=== PATIENT | female | born 1950 | race Caucasian/White ===

== ENCOUNTER 2018-07-27 17:54 | Emergency (ER) | payer MEDICARE, OTHER, SELFPAY ==
[2018-07-27 18:02] VITALS: BP 132/67; PULSE 74; RESP 20; TEMP 36.4; O2SAT 97
--- NOTE | 2018-07-27 18:09 | DI.CT.S_ITS ---
PROCEDURE: CT HEAD/BRAIN WO CON INDICATIONS: fall with head injury, hematoma, vision change TECHNIQUE: Noncontrast 4.5 mm thick angled axial sections acquired from the foramen magnum to the vertex, with coronal and sagittal reformats. For radiation dose reduction, the following was used: automated exposure control, adjustment of mA and/or kV according to patient size. COMPARISON: None. FINDINGS: Image quality: Excellent. CSF spaces: Basal cisterns are patent. No extra-axial fluid collections. Ventricles are normal in size and shape. Brain: No intracranial hemorrhage, mass, or mass effect. Foote-white matter interface is preserved. Skull and face: There is subcutaneous soft tissue swelling in the left supraorbital for a region. Calvarium and visualized facial bones appear intact. The visualized orbits demonstrate no fluid collections. The visualized globes appear intact. Sinuses: Visualized sinuses and mastoids are clear. IMPRESSION: 1. No acute intracranial abnormalities. 2. Left supraorbital forehead soft tissue swelling without evidence of associated fracture. Dictated by: hCarli Nails M.D. on 07/27/2018 at 19:01 Approved by: Charli Nails M.D. on 07/27/2018 at 19:04
--- NOTE | 2018-07-27 18:09 | ED.HEATRA ---
HPI - Head Injury General Chief complaint: Head Injury Stated complaint: FALL LEFT SIDE BUMP ON HEAD Time Seen by Provider: 07/27/18 18:00 Source: patient and family Mode of arrival: ambulatory Limitations: no limitations History of Present Illness HPI Narrative: 68-year-old female, nonsmoker presents with her and a chief complaint of a ground level fall resulting in head injury. She was walking in the dark bedroom and tripped on a carpet, falling forward striking the left part of her forehead. She denies loss of consciousness nor nausea or. She is acting baseline per her . She has had no nausea, vomiting denies any numbness, tingling or weakness. She denies any neck or back pain nor any other injury such as shoulder, hip or knee. She takes no blood thinners and denies use of alcohol or street drugs. MD Complaint: head injury Onset (ago): minute(s) Mechanism of Injury: fall Place: home Loss of Consciousness: no Location of injury: frontal Severity: mild Quality: aching Radiation: none Other Injuries: none Associated symptoms: denies other symptoms Related Data Home Medications Medication Instructions Recorded Confirmed estradiol 0.5 mg PO QDAY #0 08/22/17 06/30/18 calcium carbonate-vitamin D3 1 tab PO BID #180 09/16/17 06/30/18 [Oyster Shell Calcium-Vit D3] diphenhydramine HCl [Benadryl 25 mg PO PRN PRN #0 09/16/17 06/30/18 Allergy] levothyroxine [Synthroid] 100 mg PO QDAY #90 09/16/17 06/30/18 loratadine 10 mg PO QDAY #90 09/16/17 06/30/18 hydroxyzine HCl #0 12/22/17 06/30/18 felodipine ER 10 mg PO 90 Days #90 tab 02/03/18 06/30/18 tablet,extended release 24 hr metoprolol succinate ER 25 mg PO 90 Days #45 tab 02/03/18 06/30/18 tablet,extended release 24 hr montelukast 10 mg tablet 10 mg PO 90 Days tab 02/03/18 06/30/18 simvastatin 20 mg tablet 20 mg PO 90 Days tab 02/03/18 06/30/18 Previous Rx's Medication Instructions Recorded prednisone 20 mg PO QDAY #8 tab 12/22/17 triamcinolone acetonide 1 vincent TOPICAL BIDP PRN #15 gm 12/22/17 hydroxyzine HCl 10 mg PO TIDP PRN #90 tab 12/25/17 lithium carbonate 150 mg PO HS #180 cap 12/25/17 lurasidone 40 mg tablet 40 mg PO HS #90 tab 03/04/18 lamotrigine 100 mg tablet 100 mg PO QDAY #90 tab 06/30/18 Allergies Allergy/AdvReac Type Severity Reaction Status Date / Time hydromorphone [HYDROMORPHONE] Allergy Unknown Unverified 06/30/18 09:56 NSAIDS (Non-Steroidal Allergy Unknown Unverified 06/30/18 09:56 Anti-Inflamma [NSAIDS (NON-STEROIDAL ANTI-INFLAMMA] hydrocodone [HYDROCODONE] AdvReac Mild itching Unverified 06/30/18 09:56 oxycodone [OXYCODONE] AdvReac Mild itching Unverified 06/30/18 09:56 ANTHISTAMINE Allergy Intermediate HIVES,ITCHI Uncoded 06/30/18 09:56 NG Review of Systems Review of Systems All systems reviewed & are unremarkable except as noted in HPI and below Constitutional Denies chills, Denies fever(s), Denies lethargy and Denies weakness Eyes Denies change in vision, Denies eye discharge, Denies irritation and Denies loss of vision ENT Ears, Nose, Mouth, and Throat: Denies change in voice, Denies neck pain and Denies sore throat Cardiovascular Denies chest pain, Denies irregular heart rhythm, Denies lightheadedness, Denies palpitations, Denies dyspnea, Denies dyspnea on exertion and Denies orthopnea Respiratory Denies cough, Denies dyspnea, Denies dyspnea on exertion and Denies wheezing Gastrointestinal Gastrointestinal: Denies abdominal pain, Denies change in bowel habits, Denies diarrhea, Denies nausea and Denies vomiting Genitourinary Denies hematuria, Denies flank pain, Denies urinary incontinence and Denies urinary urgency Musculoskeletal Denies neck pain Integumentary/Breasts Denies pruritus, Denies erythema, Denies rash, Reports skin pain, Reports skin swelling and Denies wounds Neurologic Denies confusion, Denies loss of vision and Denies weakness Psychiatric Denies anxiety, Denies confusion, Denies depression, Denies homicidal ideation and Denies suicidal ideation Endocrine Denies palpitations Hematologic/Lymphatic Denies easy bruising Allergic/Immunologic Denies wheezing PFSH Medical History Obstructive sleep apnea of adult (Chronic) Primary insomnia (Chronic) Snoring (Chronic) Social History Smoking Status: Never smoker Exam Narrative Exam Narrative: GENERAL: 68-year-old female, mild distress, GCS 15 HEAD: hematoma to left forehead with superficial abrasion. no evidence of depressed skull fracture EYES: Pupils equal round and reactive. Extraocular motions intact. No scleral icterus. No injection or drainage. No hyphema ENT: Nose without bleeding, purulent drainage or septal hematoma. Throat without erythema, tonsillar hypertrophy or exudate. Uvula midline. Airway patent. NECK: Trachea midline. No JVD or lymphadenopathy. Supple, nontender, no meningeal signs. CARDIOVASCULAR: Regular rate and rhythm without murmurs, gallops, or rubs. RESPIRATORY: Clear to auscultation. Breath sounds equal bilaterally. No wheezes, rales, or rhonchi. GASTROINTESTINAL: Abdomen soft, non-tender, nondistended. No hepato-splenomegaly, or palpable masses. No guarding. EXTREMITIES: No clubbing, cyanosis, or edema. No joint tenderness, effusion, or edema noted. BACK: Nontender without deformity or crepitance. No flank tenderness. NEURO: AOx3. SKIN: No rash or erythema. Initial Vital Signs Initial Vital Signs: Vital Signs Temperature 97.6 F 07/27/18 18:02 Pulse Rate 74 07/27/18 18:02 Respiratory Rate 20 07/27/18 18:02 Blood Pressure 132/67 07/27/18 18:02 Pulse Oximetry 97 07/27/18 18:02 Course Orders Ordered: ED Orders 07/27/18 18:09 CT head/brain wo con Stat Vital Signs - 8 hr 07/27/18 18:02 07/27/18 19:02 Temperature 97.6 F Pulse Rate 74 73 Respiratory Rate 20 16 Blood Pressure 132/67 Blood Pressure [Left Arm] 103/62 Pulse Oximetry 97 98 Discharge Plan Departure Patient Disposition: Home Clinical Impression: Hematoma Discharge Date/Time: 07/27/18 19:39 Interventions: ED Discharge Assessment Last Done: 07/27/18 19:39 Instructions: DI for Hematoma (Bruise) Activity Restrictions/Additional Instructions: *You have been diagnosed with [ ground level fall with forehead contusion ] *What to do: * continued to take medications as directed *Follow up with your primary care provider in 2-3 days, call for an appointment. Let them know you were seen in the Emergency Department and that we ask that you be seen in follow up. follow up with your labor standards director as well given your relatively recent cataract surgery and occasional blurring of vision in the left *Return to ER if you should have any new, worsening or concerning symptoms, such as [ ] Prescriptions: No Action montelukast 10 mg tablet 10 mg PO 90 Days RF: 0 metoprolol succinate 25 mg tablet extended release 24 hr PO 90 Days Qty: 45 RF: 0 simvastatin 20 mg tablet 20 mg PO 90 Days RF: 0 felodipine 10 mg tablet extended release 24 hr PO 90 Days Qty: 90 RF: 0 lurasidone [Latuda] 40 mg tablet 40 mg PO HS Qty: 90 RF: 1 lamotrigine [Lamictal] 100 mg tablet 100 mg PO QDAY Qty: 90 RF: 1 estradiol 0.5 MG tablet 0.5 mg PO QDAY Qty: 0 RF: 0 calcium carbonate-vitamin D3 [Oyster Shell Calcium-Vit D3] 500 MG/200 IU tablet 1 tab PO BID Qty: 180 RF: 0 levothyroxine [Synthroid] 100 MCG tablet 100 mg PO QDAY Qty: 90 RF: 0 loratadine 10 MG tablet 10 mg PO QDAY Qty: 90 RF: 0 diphenhydramine HCl [Benadryl Allergy] 25 MG tablet 25 mg PO PRN PRNQty: 0 RF: 0 hydroxyzine HCl 25 MG tablet Qty: 0 RF: 0 prednisone 20 MG tablet 20 mg PO QDAY Qty: 8 RF: 0 triamcinolone acetonide 0.1 % cream 1 vincent Topical BIDP PRNQty: 15 RF: 0 lithium carbonate 150 MG capsule 150 mg PO HS Qty: 180 RF: 1 hydroxyzine HCl 10 MG tablet 10 mg PO TIDP PRNQty: 90 RF: 1
--- NOTE | 2018-07-27 18:25 | PC.NURSE ---
pt reports she briefly had blurry vision in her left eye only, this resolved prior to arrival in ED, pupils equal/round/reactive
[2018-07-27 19:02] VITALS: BP 103/62; PULSE 73; RESP 16; O2SAT 98
== END 2018-07-27 19:39 | disposition home or self-care (01) ==
PROVIDERS: Emergency Provider Emergency Medicine
DX: S00.83XA Contusion of other part of head, initial encounter (principal); W01.0XXA Fall on same level from slipping, tripping and stumbling without subsequent striking against object, initial encounter
CPT/HCPCS: 70450; 99283; 99284

== ENCOUNTER → 2020-01-25 10:08 | Outpatient (CLI) | payer MEDICARE, OTHER, SELFPAY ==
--- NOTE | 2020-01-25 | DI.MG.S_ITS ---
BILATERAL DIGITAL SCREENING MAMMOGRAM 3D/2D WITH CAD: 01/25/2020 CLINICAL: Routine screening. Comparison is made to exams dated: 09/16/2018 mammogram, 07/24/2017 mammogram, and 07/25/2016 mammogram - [facility]. There are scattered fibroglandular elements in both breasts. Current study was also evaluated with a Computer Aided Detection (CAD) system. There are benign vascular calcifications in the left breast. No significant masses, calcifications, or other findings are seen in either breast. There has been no significant interval change. IMPRESSION: There is no mammographic evidence of malignancy. A 1 year screening mammogram is recommended. This exam was interpreted at Station ID: [id number]. NOTE: For mammograms, a report in lay terms will be sent to the patient. Approximately 15% of breast malignancies will not be visualized mammographically. In the management of a palpable breast mass, a negative mammogram must not discourage biopsy of a clinically suspicious lesion. Electronically Signed By: Irvin finn/stephon:01/25/2020 10:38:51 letter sent: Normal Exam ACR BI-RADS Category 2: Benign Finding(s) [id number]
== END ==
PROVIDERS: Referring Provider Physician Assistant; Visit Provider Physician Assistant
DX: Z12.31 Encounter for screening mammogram for malignant neoplasm of breast (principal)
CPT/HCPCS: 77063; 77067

== ENCOUNTER → 2020-08-17 11:35 | Outpatient (CLI) | payer MEDICARE, OTHER, SELFPAY ==
--- NOTE | 2020-08-17 | DI.MRI.S_ITS ---
PROCEDURE: MR ANKLE RT WO CON INDICATIONS: Sprain of other ligament of right ankle, subsequent encounte TECHNIQUE: Noncontrast sagittal T1 spin echo and T2 fast spin echo with fat saturation, axial proton density fast spin echo and T2 fast spin echo with fat saturation, coronal T1 spin echo and T2 fast spin echo with fat saturation through the ankle/hindfoot. COMPARISON: None. FINDINGS: Image quality: Excellent. Bones and joints: No bone marrow contusions or fractures. No hindfoot coalitions. No osteochondral injuries of the talar dome. No pathologic joint effusions. There is extensive severe diffuse tarsometatarsal joint degeneration with subchondral edema and cystic changes. Medial structures: Posterior tibialis intact. Flexor digitorum longus intact. Flexor hallucis longus tendon intact. The posterior tibial neurovascular bundle appears normal within the tarsal tunnel, without extrinsic mass effect. Deltoid ligament complex appears intact. The spring ligament appears intact. Lateral structures: Anterior talofibular ligament is not well visualized, with possible T2 hyperintensity suggesting age-indeterminate sprain. Calcaneofibular ligament intact. Posterior talofibular ligament intact. Anterior and posterior tibiofibular ligaments appear intact, as is the intermalleolar ligament. Tibiofibular syndesmosis is normal in width at 2 mm or less. Peroneus longus and brevis tendons appear thickened with mild intrasubstance signal changes. There is diffuse peroneal tenosynovitis Bony peroneal tubercle and retrotrochlear prominence are normal in size. Sinus tarsi demonstrates normal fatty signal, without edema, fibrosis, or cyst formation. Anterior structures: Tibialis anterior intact. Extensor hallucis longus intact. Extensor digitorum longus tendon intact. Dorsal talonavicular ligament appears intact. Posterior and plantar structures: Distal Achilles tendinopathy, thickening and intrasubstance signal changes. Medial and lateral bands of the plantar fascia intact. No abductor digiti quinti muscle atrophy to suggest Last neuropathy. 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 on 08/17/2020 at 12:58 Approved by: Cosme Ponce M.D. on 08/17/2020 at 13:07
== END ==
PROVIDERS: Referring Provider Podiatrist; Visit Provider Podiatrist
DX: S93.491D Sprain of other ligament of right ankle, subsequent encounter (principal); M65.871 Other synovitis and tenosynovitis, right ankle and foot; M19.071 Primary osteoarthritis, right ankle and foot
CPT/HCPCS: 73721

== ENCOUNTER → 2020-12-27 07:57 | Outpatient (CLI) | payer MEDICARE, OTHER, SELFPAY ==
[2020-12-27 08:51] LABS: Add Manual Diff / Slide Review NO; Basophils Absolute Auto 0 /uL (0-100); Basophils Percent Auto 0.1 % (0-2); Eosinophils Absolute Auto 0 /uL (0-450); Eosinophils Percent Auto 0.1 % (2-4); Hematocrit 40.8 % (36-46); Lymphocytes Absolute Auto 1100 /uL (1100-4500); Lymphocytes Percent Auto 27.7 % (25-40); Mean Corpuscular HGB Conc 34.3 % (30-36); Mean Corpuscular Hemoglobin 31.9 PG (26-34); Monocytes Absolute Auto 400 /uL (0-900); Monocytes Percent Auto 10.8 % (3-14); Neutrophils Absolute Auto 2500 /uL (1500-7000); Neutrophils Percent Auto 61.3 % (50-75); Platelet Count 170 X10^3/uL (150-400); Red Blood Cell Count 4.38 X10^6/uL (4.0-5.2); White Blood Cell Count 4.1 X10^3/uL (4.5-11.0)
[2020-12-27 08:59] LABS: Hemoglobin A1C% w Est Avg Glu 4.7 % (4.0-6.0)
[2020-12-27 09:37] LABS: Lithium 0.3 mmol/L (0.6-1.2)
[2020-12-27 09:38] LABS: Alanine Aminotransferase 19 IU/L (<35); Albumin 4.7 g/dL (3.5-5.0); Alkaline Phosphatase 75 U/L (38-126); Aspartate Aminotransferase 31 IU/L (14-36); Bilirubin Total 0.5 mg/dL (0.2-1.3); Blood Urea Nitrogen 17 mg/dL (7-17); Calcium 10.1 mg/dL (8.4-10.2); Carbon Dioxide 26 mmol/L (22-32); Chloride 101 mmol/L (98-107); Cholesterol 204 mg/dL (140-199); Estimated Glomerular Filt Rate 55.1 mL/min (>60); Globulin 2.4 g/dL (1.7-4.1); Glucose 89 mg/dL (80-110); HDL Cholesterol 94 mg/dL (40-60); HEMOLYSIS < 15 (0-50); LDL Cholesterol Calculated 100 mg/dL (<100); Potassium 4.6 mmol/L (3.4-5.1); Sodium 134 mmol/L (137-145); Total Protein 7.1 g/dL (6.3-8.2); Triglycerides 51 mg/dL (35-150)
[2020-12-27 09:54] LABS: Free T4, Direct Thyroxine 1.44 ng/dL (0.78-2.19)
[2020-12-27 10:12] LABS: Thyroid Stimulating Hormone 0.158 uIU/mL (0.47-4.68)
== END ==
PROVIDERS: PCP Physician Assistant; Referring Provider Nurse Practitioner Psychiatric/Mental Health; Visit Provider Nurse Practitioner Psychiatric/Mental Health
DX: F31.9 Bipolar disorder, unspecified (principal); Z51.81 Encounter for therapeutic drug level monitoring; F43.10 Post-traumatic stress disorder, unspecified; F41.9 Anxiety disorder, unspecified; E03.9 Hypothyroidism, unspecified; E78.5 Hyperlipidemia, unspecified; E11.9 Type 2 diabetes mellitus without complications; N28.9 Disorder of kidney and ureter, unspecified
CPT/HCPCS: 36415; 80053; 80061; 80178; 83036; 84439; 84443; 85025

== ENCOUNTER → 2021-01-25 15:12 | Outpatient (CLI) | payer MEDICARE, OTHER, SELFPAY ==
--- NOTE | 2021-01-25 | DI.MG.S_ITS ---
BILATERAL DIGITAL SCREENING MAMMOGRAM 3D/2D WITH CAD: 01/25/2021 CLINICAL: Routine screening. Comparison is made to exams dated: 01/25/2020 mammogram - [facility], 09/16/2018 mammogram, and 07/24/2017 mammogram - [facility]. There are scattered fibroglandular elements in both breasts. Current study was also evaluated with a Computer Aided Detection (CAD) system. There are benign vascular calcifications in the left breast. No significant masses, calcifications, or other findings are seen in either breast. There has been no significant interval change. IMPRESSION: BENIGN There is no mammographic evidence of malignancy. A 1 year screening mammogram is recommended. This exam was interpreted at Station ID: [id number]. NOTE: For mammograms, a report in lay terms will be sent to the patient. Approximately 15% of breast malignancies will not be visualized mammographically. In the management of a palpable breast mass, a negative mammogram must not discourage biopsy of a clinically suspicious lesion. Electronically Signed By: Irvin finn/stephon:01/25/2021 17:57:02 letter sent: Normal Exam ACR BI-RADS Category 2: Benign Finding(s) [id number]
== END ==
PROVIDERS: PCP Physician Assistant; Referring Provider Physician Assistant; Visit Provider Physician Assistant
DX: Z12.31 Encounter for screening mammogram for malignant neoplasm of breast (principal)
CPT/HCPCS: 77063; 77067

== ENCOUNTER → 2021-01-29 13:19 | Outpatient (CLI) | payer MEDICARE, OTHER, SELFPAY | PROVIDERS: PCP Physician Assistant; Referring Provider Podiatrist; Visit Provider Podiatrist | DX: Z01.818 Encounter for other preprocedural examination (principal) | CPT/HCPCS: 93005 ==

== ENCOUNTER → 2022-02-06 09:34 | Outpatient (CLI) | payer MEDICARE, OTHER, SELFPAY ==
--- NOTE | 2022-02-06 | DI.MRI.S_ITS ---
PROCEDURE: MR KNEE RT WO CON INDICATIONS: BILATERAL KNEE PAIN TECHNIQUE: Noncontrast sagittal PD fast spin echo and T2 fast spin echo with fat saturation, sagittal 3-D FLASH with fat saturation; coronal T1 spin echo and PD fast spin echo with fat saturation, and axial PD fast spin echo with fat saturation through the knee. COMPARISON: [facility], MR, KNEE WITHOUT CONTRAST, 01/15/2013, 20:40. [facility], MR, MR KNEE LT WO CON, 02/06/2022, 9:57. FINDINGS: Image quality: Excellent. Menisci: There is linear horizontal high signal intensity traversing the inner, middle, and peripheral thirds of the medial meniscal body and posterior horn, demonstrating inferior articular surface extension, indicating horizontal tearing, as before. There is amorphous high signal intensity within the lateral meniscal body and posterior horn, demonstrating inferior articular surface extension, as before. Cruciate ligaments: The anterior and posterior cruciate ligaments appear intact. Medial structures: The medial collateral ligament appears intact. Visualized portions of the pes anserinus tendons appear normal. No abnormal bursal fluid. Lateral structures: The lateral collateral ligament, long and short heads of the biceps femoris tendon appear intact. The popliteus tendon appears normal. Iliotibial band appears normal. Anterior structures: The quadriceps and patellar tendons appear intact. Patellar alignment is normal. No femoral trochlear dysplasia or ventral trochlear prominence. No edema in the infrapatellar fat pad. Bones and cartilage: No bone marrow contusions or fractures. Mild tricompartmental periarticular osteophyte formation is present. Moderate articular cartilage loss diffusely overlies the weight-bearing aspects of the medial femoral condyle and medial tibial plateau. Mild articular cartilage loss diffusely overlies the weight-bearing aspects of the lateral femoral condyle and lateral tibial plateau. Severe articular cartilage loss overlies the patellar apex and medial patellar facet. Joint space: There is a small knee joint effusion. Increased intra-articular loose body within the posterior aspect of the medial compartment, currently measuring 12 mm. No Gillette's cyst. Normal appearing synovial plicae are incidentally noted. IMPRESSION: 1. Medial and lateral meniscal tearing. 2. Knee joint effusion. Intra-articular loose body. 3. Tricompartmental osteoarthritis with associated articular cartilage loss. Dictated by: Marino Turner M.D. on 02/06/2022 at 12:05 Approved by: Marino Turner M.D. on 02/06/2022 at 12:09
--- NOTE | 2022-02-06 | DI.MRI.S_ITS ---
PROCEDURE: MR KNEE LT WO CON INDICATIONS: BILATERAL KNEE PAIN TECHNIQUE: Noncontrast sagittal PD fast spin echo and T2 fast spin echo with fat saturation, sagittal 3-D FLASH with fat saturation; coronal T1 spin echo and PD fast spin echo with fat saturation, and axial PD fast spin echo with fat saturation through the knee. COMPARISON: [facility], MR, KNEE WITHOUT CONTRAST, 10/06/2014, 14:00. FINDINGS: Image quality: Excellent. Menisci: Horizontally oriented high T2 signal intensity traverses the inner, middle, and peripheral thirds of the posterior horn medial meniscus, demonstrating inferior articular surface extension, indicating horizontal tearing, as before. There is increased medial extrusion of the medial meniscus. New amorphous high signal intensity within the medial meniscal body is present demonstrating inferior articular surface extension, indicating complex tearing. Lateral meniscus is intact. Cruciate ligaments: The anterior and posterior cruciate ligaments appear intact. Medial structures: The medial collateral ligament appears intact. Visualized portions of the pes anserinus tendons appear normal. No abnormal bursal fluid. Lateral structures: The lateral collateral ligament, long and short heads of the biceps femoris tendon appear intact. The popliteus tendon appears normal. Iliotibial band appears normal. Anterior structures: The quadriceps and patellar tendons appear intact. Patellar alignment is normal. No femoral trochlear dysplasia or ventral trochlear prominence. No edema in the infrapatellar fat pad. Bones and cartilage: No bone marrow contusions or fractures. There is increased, moderate ill-defined T2 signal elevation within the weight-bearing aspects of the medial tibial plateau. New subchondral cyst formation within the medial tibial plateau posteriorly. Degenerative marrow edema within the patellar apex and medial patellar facet is present, as before. Mild tricompartmental periarticular osteophyte formation. Moderate articular cartilage loss diffusely overlies the weight-bearing aspects of the medial femoral condyle and medial tibial plateau. Severe articular cartilage loss overlies the patellar apex and medial patellar facet, as before. Joint space: There is physiologic knee joint fluid. No Gillette's cyst. Normal appearing synovial plicae are incidentally noted. IMPRESSION: 1. Progressive tearing of the medial meniscus which now demonstrates complex tearing. 2. Progressive medial compartment osteoarthritis with associated marrow edema in the medial tibial plateau and increased articular cartilage loss. 3. Patellofemoral compartment articular cartilage loss. Dictated by: Marino Turner M.D. on 02/06/2022 at 11:45 Approved by: Marino Turner M.D. on 02/06/2022 at 11:47
== END ==
PROVIDERS: PCP Student in an Organized Health Care Education/Training Program; Referring Provider Student in an Organized Health Care Education/Training Program; Visit Provider Student in an Organized Health Care Education/Training Program
DX: S83.232A Complex tear of medial meniscus, current injury, left knee, initial encounter (principal); S83.241A Other tear of medial meniscus, current injury, right knee, initial encounter; S83.281A Other tear of lateral meniscus, current injury, right knee, initial encounter; M17.0 Bilateral primary osteoarthritis of knee; M25.461 Effusion, right knee; M25.561 Pain in right knee; M25.562 Pain in left knee
CPT/HCPCS: 73721

== ENCOUNTER → 2022-03-12 10:38 | Outpatient (CLI) | payer MEDICARE, OTHER, SELFPAY ==
--- NOTE | 2022-03-12 | DI.MG.S_ITS ---
BILATERAL DIGITAL SCREENING MAMMOGRAM 3D/2D WITH CAD: 03/12/2022 CLINICAL: Routine screening. Comparison is made to exams dated: 01/25/2021 mammogram, 01/25/2020 mammogram - [facility], and 09/16/2018 mammogram - [facility]. There are scattered fibroglandular elements in both breasts. Current study was also evaluated with a Computer Aided Detection (CAD) system. There are benign vascular calcifications in the left breast. No significant masses, calcifications, or other findings are seen in either breast. There has been no significant interval change. IMPRESSION: BENIGN There is no mammographic evidence of malignancy. A 1 year screening mammogram is recommended. Based on the Tyrer Cuzick model (a risk assessment model) the patient's lifetime risk is 4.0% and her 10 year risk is 2.5%. According to the ACR, ACS, and NCCN guidelines, an annual breast MRI exam along with mammogram is recommended if the patient's lifetime risk is 20% or greater. This exam was interpreted at Station ID: [id number]. NOTE: For mammograms, a report in lay terms will be sent to the patient. Approximately 15% of breast malignancies will not be visualized mammographically. In the management of a palpable breast mass, a negative mammogram must not discourage biopsy of a clinically suspicious lesion. Electronically Signed By: Travis davies/stephon:03/12/2022 11:31:18 letter sent: Normal Exam ACR BI-RADS Category 2: Benign Finding(s) [id number]
== END ==
PROVIDERS: PCP Student in an Organized Health Care Education/Training Program; Referring Provider Student in an Organized Health Care Education/Training Program; Visit Provider Student in an Organized Health Care Education/Training Program
DX: Z12.31 Encounter for screening mammogram for malignant neoplasm of breast (principal)
CPT/HCPCS: 77063; 77067

== ENCOUNTER → 2022-06-06 09:06 | Outpatient (CLI) | payer MEDICARE, OTHER, SELFPAY ==
[2022-06-06 11:04] LABS: Alanine Aminotransferase 29 IU/L (<35); Albumin 4.5 g/dL (3.5-5.0); Albumin Globulin Ratio 1.7 (1.0-2.8); Alkaline Phosphatase 48 U/L (38-126); Aspartate Aminotransferase 37 IU/L (14-36); BUN Creatinine Ratio 14.2 (6-22); Bilirubin Total 0.5 mg/dL (0.2-1.3); Blood Urea Nitrogen 16 mg/dL (7-17); Calcium 10.2 mg/dL (8.4-10.2); Carbon Dioxide 28 mmol/L (22-32); Chloride 101 mmol/L (98-107); Estimated Glomerular Filt Rate 52 mL/min (>60); Globulin 2.6 g/dL (1.7-4.1); Glucose 83 mg/dL (80-110); HEMOLYSIS < 15 (0-50); Sodium 138 mmol/L (137-145); Total Protein 7.1 g/dL (6.3-8.2)
[2022-06-06 11:21] LABS: Free T4, Direct Thyroxine 1.11 ng/dL (0.78-2.19)
[2022-06-10 10:47] LABS: Lamotrigine Lamictal 3.4 ug/mL (2.0-20.0)
== END ==
PROVIDERS: PCP Student in an Organized Health Care Education/Training Program; Referring Provider Psychiatry & Neurology Psychiatry; Visit Provider Psychiatry & Neurology Psychiatry
DX: F31.31 Bipolar disorder, current episode depressed, mild (principal)
CPT/HCPCS: 36415; 80053; 80175; 84439; 84443

== ENCOUNTER → 2022-10-07 08:27 | Outpatient (CLI) | payer MEDICARE, OTHER, SELFPAY ==
[2022-10-07 09:05] LABS: Lithium 0.2 mmol/L (0.6-1.2)
[2022-10-07 09:09] LABS: Alanine Aminotransferase 41 IU/L (<35); Albumin 4.7 g/dL (3.5-5.0); Albumin Globulin Ratio 1.7 (1.0-2.8); Alkaline Phosphatase 46 U/L (38-126); Aspartate Aminotransferase 43 IU/L (14-36); BUN Creatinine Ratio 11.1 (6-22); Bilirubin Total 0.6 mg/dL (0.2-1.3); Blood Urea Nitrogen 14 mg/dL (7-17); Calcium 10.4 mg/dL (8.4-10.2); Carbon Dioxide 28 mmol/L (22-32); Chloride 96 mmol/L (98-107); Estimated Glomerular Filt Rate 46 mL/min (>60); Globulin 2.8 g/dL (1.7-4.1); Glucose 91 mg/dL (80-110); HEMOLYSIS < 15 (0-50); Potassium 4.4 mmol/L (3.4-5.1); Sodium 133 mmol/L (137-145); Total Protein 7.5 g/dL (6.3-8.2)
== END ==
PROVIDERS: PCP Student in an Organized Health Care Education/Training Program; Referring Provider Psychiatry & Neurology Psychiatry; Visit Provider Psychiatry & Neurology Psychiatry
DX: F31.31 Bipolar disorder, current episode depressed, mild (principal); Z51.81 Encounter for therapeutic drug level monitoring
CPT/HCPCS: 36415; 80053; 80175; 80178

== ENCOUNTER → 2022-12-13 09:18 | Outpatient (CLI) | payer MEDICARE, OTHER, SELFPAY ==
[2022-12-13 10:26] LABS: Alanine Aminotransferase 37 IU/L (<35); Albumin 4.3 g/dL (3.5-5.0); Albumin Globulin Ratio 1.5 (1.0-2.8); Alkaline Phosphatase 49 U/L (38-126); Aspartate Aminotransferase 41 IU/L (14-36); BUN Creatinine Ratio 16.5 (6-22); Bilirubin Total 0.4 mg/dL (0.2-1.3); Blood Urea Nitrogen 19 mg/dL (7-17); Calcium 9.8 mg/dL (8.4-10.2); Carbon Dioxide 28 mmol/L (22-32); Chloride 100 mmol/L (98-107); Estimated Glomerular Filt Rate 51 mL/min (>60); Globulin 2.9 g/dL (1.7-4.1); Glucose 87 mg/dL (80-110); HEMOLYSIS < 15 (0-50); Potassium 4.6 mmol/L (3.4-5.1); Sodium 135 mmol/L (137-145); Total Protein 7.2 g/dL (6.3-8.2)
[2022-12-13 10:29] LABS: Lithium < 0.2 mmol/L (0.6-1.2)
[2022-12-16 16:41] LABS: Lamotrigine Lamictal 3.3 ug/mL (2.0-20.0)
== END ==
PROVIDERS: PCP Student in an Organized Health Care Education/Training Program; Referring Provider Psychiatry & Neurology Psychiatry; Visit Provider Psychiatry & Neurology Psychiatry
DX: F31.31 Bipolar disorder, current episode depressed, mild (principal); Z79.899 Other long term (current) drug therapy
CPT/HCPCS: 36415; 80053; 80175; 80178

== ENCOUNTER 2023-03-12 09:40 | Emergency (ER) | payer MEDICARE, OTHER, SELFPAY ==
[2023-03-12 10:00] VITALS: BP 138/63; PULSE 60; RESP 14; TEMP 36.7; O2SAT 95; BMI 32.3
[2023-03-12 10:13] VITALS: PULSE 60; O2SAT 97
[2023-03-12 10:19] VITALS: BP 136/62; PULSE 59; RESP 19; O2SAT 95
--- NOTE | 2023-03-12 10:27 | ED.ABDPAIN ---
HPI - Abdominal Pain General Chief Complaint: Abdominal Pain Stated Complaint: pain RT side below belly button Time Seen by Provider: 03/12/23 09:47 Source: patient Mode of arrival: Ambulatory History of Present Illness HPI narrative: 73-year-old female nonsmoker with history of prior abdominal surgeries presents with a chief complaint of pain in her right lower quadrant gradually worsening over the course of the day. She states the pain seems to be worse by certain motions and by bending over it improves when lying flat and resting. She denies any radiation of the pain. She denies nausea, vomiting or diarrhea. She has had no fever or chills. She had a bowel movement this morning that was normal. She is passing gas without difficulty. She denies dysuria, frequency or urgency. Related Data Home Medications Medication Instructions Recorded Confirmed diphenhydramine HCl 25 mg tablet 25 mg PO PRN PRN ##0 09/16/17 08/15/22 (Benadryl Allergy) BIPAP inhalation 12/20/20 08/15/22 cholecalciferol (vitamin D3) 50 1,000 mcg PO DAILY 01/31/21 08/15/22 mcg (2,000 unit) capsule docusate sodium 100 mg capsule 200 mg PO DAILY 03/01/21 08/15/22 (Colace) psyllium husk 0.52 gram capsule 0.52 g PO DAILY 03/01/21 08/15/22 (Metamucil) ascorbic acid (vitamin C) 500 mg 500 mg PO DAILY 02/28/22 08/15/22 tablet conjugated estrogens 0.3 mg tablet 0.3 mg PO DAILY 02/28/22 08/15/22 (Premarin) felodipine 10 mg tablet,extended 10 mg PO DAILY 90 days 02/28/22 08/15/22 release 24 hr levothyroxine 88 mcg tablet 88 mcg PO DAILY 02/28/22 08/15/22 (Synthroid) metoprolol succinate 25 mg 25 mg PO DAILY 90 days 02/28/22 08/15/22 tablet,extended release 24 hr montelukast 10 mg tablet 10 mg PO DAILY 90 days 02/28/22 08/15/22 simvastatin 20 mg tablet 20 mg PO DAILY 90 days 02/28/22 08/15/22 turmeric 1 cap PO DAILY 02/28/22 08/15/22 Previous Rx's Medication Instructions Recorded lurasidone 40 mg tablet (Latuda) 40 mg PO HS #90 tabs 02/28/22 hydroxyzine HCl 10 mg tablet 10 mg PO QID PRN anxiety #90 tabs 11/05/22 lamotrigine 100 mg tablet 200 mg PO QDAY #180 tabs 11/05/22 (Lamictal) Allergies Allergy/AdvReac Type Severity Reaction Status Date / Time Opioids - Morphine Analogues Allergy Severe long Verified 03/12/23 10:04 lasting intense rashes hydromorphone [HYDROMORPHONE] Allergy Unknown Verified 03/12/23 10:04 hydrocodone [HYDROCODONE] AdvReac Mild itching Verified 03/12/23 10:04 oxycodone [OXYCODONE] AdvReac Mild itching Verified 03/12/23 10:04 NSAIDS (Non-Steroidal AdvReac Unknown Verified 03/12/23 10:04 Anti-Inflamma [NSAIDS (NON-STEROIDAL ANTI-INFLAMMA] ANTHISTAMINE Allergy Intermediate HIVES,ITCHI Uncoded 08/15/22 09:16 NG Review of Systems Review of Systems Narrative: GENERAL: Denies chills, fatigue, malaise, fever, sweats. HEENT: Denies sinus pain, ear pain, sore throat, difficulty swallowing, dizziness. RESPIRATORY: Denies dyspnea, cough, wheezing, hemoptysis, sputum. CARDIOVASCULAR: Denies chest pain, palpitations, orthopnea, edema, GASTROINTESTINAL: See HPI : Denies dysuria, frequency, incontinence, hematuria, urinary retention. MUSCULOSKELETAL: denies weakness, joint pain, or bony pain SKIN: Denies rash, skin lesions, or other NEUROLOGIC: Denies weakness, headache, numbness, change in speech, confusion, seizures, incoordination. PSYCHIATRIC: No concerning psychosocial issues. 12 point review of systems is negative except for those stated above Patient History Medical History Alcohol use disorder, moderate, in sustained remission Anxiety disorder Bipolar 1 disorder with moderate divya Bipolar disorder, unspecified History of IBS Nocturnal hypoxemia Obstructive sleep apnea of adult Snoring Stress at home Surgical History History of bilateral knee arthroplasty History of cholecystectomy History of lumbar laminectomy History of rotator cuff surgery History of vein stripping Social History seatbelt use: always do you feel safe at home: Yes Smoking Status: Never smoker second hand exposure: Yes (asthma) alcohol intake: former substance use type: hallucinogens during the past year weight has: remained stable Type(s) of exercise: walking Smoking Status: Never smoker alcohol intake frequency: 0-2 drinks per day Substance Use Type: does not use Exam Narrative Exam Narrative: GENERAL: [73] year old patient appears stated age. Well-developed patient, in mild distress. HEAD: Atraumatic. Normocephalic. EYES: Pupils equal round and reactive. Extraocular motions intact. No scleral icterus. No injection or drainage. ENT: Nose without bleeding, purulent drainage. Throat without erythema, tonsillar hypertrophy or exudate. Airway patent. NECK: Trachea midline. Non tender CARDIOVASCULAR: Regular rate and rhythm without murmurs, gallops, or rubs. RESPIRATORY: Clear to auscultation. Breath sounds equal bilaterally. No wheezes, rales, or rhonchi. GASTROINTESTINAL: Abdomen soft, minimal right lower quadrant pain on palpation, no rebound, nondistended. Negative Rovsing's, obturator, heel tap. Bowel sounds present EXTREMITIES: No edema or joint tenderness. BACK: Nontender without deformity or crepitance. No flank tenderness. NEURO: AOx3. SKIN: No rash or erythema of visible areas Initial Vital Signs Initial Vital Signs: Vital Signs Temperature 98.0 F 03/12/23 10:00 Pulse Rate 60 03/12/23 10:00 Respiratory Rate 14 03/12/23 10:00 Blood Pressure 138/63 03/12/23 10:00 Pulse Oximetry 95 03/12/23 10:00 Oxygen Delivery Method Room Air 03/12/23 10:00 Course Orders Ordered: Discontinued Medications Sodium Chloride (Normal Saline 0.9%) 1,000 mls @ 1,000 mls/hr IV BOLUS ONE Stop: 03/12/23 11:26 Last Infusion: 03/12/23 12:41 Dose: 0 mls/hr Documented By: Admin: 03/12/23 10:55 Dose: 1,000 mls/hr Documented By: SUSANNA Ondansetron HCl (Ondansetron 4 Mg Odt) 4 mg PO NOW PRN PRN Reason: Nausea And Vomiting Ondansetron HCl (Ondansetron 4 Mg/2 Ml Inj) 4 mg IV NOW PRN PRN Reason: Nausea And Vomiting Vital Signs Vital signs: Vital Signs - 8 hr 03/12/23 10:00 Temperature 98.0 F Pulse Rate 60 Respiratory Rate 14 Blood Pressure 138/63 Pulse Oximetry 95 Oxygen Delivery Method Room Air MDM - Abdominal Pain Lab Data 03/12/23 10:42 03/12/23 10:42 Labs: Lab Results 03/12/23 03/12/23 03/12/23 Range/Units 10:42 10:42 10:42 WBC 4.7 (4.5-11.0) X10^3/uL RBC 3.91 L (4.0-5.2) X10^6/uL Hgb 12.4 (12.0-16.0) g/dL Hct 35.8 L (36-46) % MCV 91.6 (80-100) fL MCH 31.8 (26-34) PG MCHC 34.7 (30-36) % RDW 14.1 (11.6-14.8) % Plt Count 172 (150-400) X10^3/uL Neut % (Auto) 61.0 (50-75) % Lymph % (Auto) 27.0 (25-40) % Wise % (Auto) 11.8 (3-14) % Eos % (Auto) 0.1 L (2-4) % Baso % (Auto) 0.1 (0-2) % Neut # (Auto) 2900 (2170-7327) /uL Lymph # (Auto) 1300 (0136-6999) /uL Wise # (Auto) 600 (0-900) /uL Eos # (Auto) 0 (0-450) /uL Baso # (Auto) 0 (0-100) /uL Sodium 133 L (137-145) mmol/L Potassium 4.5 (3.4-5.1) mmol/L Chloride 101 (98-107) mmol/L Carbon Dioxide 28 (22-32) mmol/L BUN 16 (7-17) mg/dL Creatinine 1.19 H (0.52-1.04) mg/dL Estimated GFR 49 L (>60) mL/min BUN/Creatinine Ratio 13.4 (6-22) Glucose 94 (80-110) mg/dL Lactate 0.6 L (0.7-2.1) mmol/L Calcium 9.8 (8.4-10.2) mg/dL Total Bilirubin 0.4 (0.2-1.3) mg/dL AST 38 H (14-36) IU/L ALT 30 (<35) IU/L Alkaline Phosphatase 73 (38-126) U/L Total Protein 7.1 (6.3-8.2) g/dL Albumin 4.3 (3.5-5.0) g/dL Globulin 2.8 (1.7-4.1) g/dL Albumin/Globulin Ratio 1.5 (1.0-2.8) Lipase 104 (23-300) U/L Point of care testing: Urine Dip Bedside Urine Glucose Negative Bedside Urine Bilirubin - Negative Bedside Urine Ketone - Negative Urine Specific Cocoa 1.010 Bedside Urine Occult Blood - Negative Bedside Urine pH 6.0 Bedside Urine Protein - Negative Bedside Urine Urobilinogen - Negative Bedside Urine Nitrite - Negative Bedside Urine Leukocytes - Negative Esterase MDM Narrative Medical decision making narrative: [73] year old patient presents with right lower quadrant pain Multiple etiologies for patient's symptoms considered including, but not limited to: [Appendicitis versus kidney stone versus bowel obstruction versus other] Prior Charts reviewed in our EMR Primary Historian: patient Labs reviewed and interpreted by myself: No leukocytosis or left shift, electrolytes and renal function within normal Imaging reviewed: No evidence of appendicitis or bowel obstruction Patient's history and physical exam are reassuring. Labs showed no sign of infection or other significant abnormality. Urine without evidence of infection. Patient's pain is well controlled, she is tolerating orals. CT shows no significant abnormality. We talked about no significant findings, certainly nothing surgical or requiring hospitalization. Discussed symptomatic treatment, use of clear liquid diet for a day or 2 and return precautions including worsening pain, fever, persistent vomiting or other bothersome symptoms. Patient is appropriate for discharge. She agrees with and understands the diagnosis and plan Patient's symptoms improved over duration of stay with above-stated therapies. Findings and discharge diagnosis discussed with patient/family followed by verbalization of understanding Return precautions discussed with patient/family whom verbalize understanding of diagnosis and plan Discharge Plan Departure Patient Disposition: Home Clinical Impression: Abdominal pain Instructions: DI for Abdominal Pain-Adult Activity Restrictions/Additional Instructions: *You have been diagnosed with [abdominal pain] * As we discussed your history and physical exam as well as labs and imaging are very reassuring. There is no evidence of any severe diagnoses that would require a specific or immediate intervention. *What to do: *Please continue to take your regular medications as directed. *Please follow up with your primary care provider in 2-3 days, call for an appointment. Let them know you were seen in the Emergency Department and that we ask that you be seen in follow up. We will electronically transmit a record of today's note if your PCP is in our system *Please consider a clear liquid diet for the next 24-48 hours and then slowly advance to regular as tolerated. Also, try to avoid alcohol, nicotine, caffeine, spicy, acidic or fatty foods as this may worsen your symptoms *If you do not have a primary care provider please contact the [facility] Resource line at [phone]. They will ask some questions about your medical history and help get you set up with a doctor in the community. *Return to Emergency Department if you should have any new, worsening or concerning symptoms, such as [fever greater than 101 F, shaking chills, worsening pain, persistent vomiting or other bothersome symptoms] Prescriptions: No Action felodipine 10 mg tablet extended release 24 hr 10 mg PO DAILY 90 Days metoprolol succinate 25 mg tablet extended release 24 hr 25 mg PO DAILY 90 Days simvastatin 20 mg tablet 20 mg PO DAILY 90 Days montelukast 10 mg tablet 10 mg PO DAILY 90 Days BIPAP inhalation docusate sodium [Colace] 100 mg capsule 200 mg PO DAILY psyllium husk [Metamucil] 0.52 gram capsule 0.52 g PO DAILY ascorbic acid (vitamin C) 500 mg tablet 500 mg PO DAILY Premarin 0.3 mg tablet 0.3 mg PO DAILY levothyroxine [Synthroid] 88 mcg tablet 88 mcg PO DAILY turmeric 1 cap PO DAILY Latuda 40 mg tablet 40 mg PO HS Qty: 90 3RF lamotrigine [Lamictal] 100 mg tablet 200 mg PO QDAY Qty: 180 3RF hydroxyzine HCl 10 mg tablet 10 mg PO QID PRN (Reason: anxiety) Qty: 90 3RF diphenhydramine HCl [Benadryl Allergy] 25 MG tablet 25 mg PO PRN PRNQty: 0 cholecalciferol (vitamin D3) 50 mcg (2,000 unit) capsule 1,000 mcg PO DAILY Referrals: Radha Bolivar MD [Primary Care Provider] - Stand Alone Forms: Patient Portal/API
[2023-03-12 10:30] VITALS: BP 149/70; PULSE 61; RESP 20; O2SAT 97
--- NOTE | 2023-03-12 10:33 | DI.CT.S_ITS ---
PROCEDURE: CT ABDOMEN PELVIS W CON INDICATIONS: severe RLQ pain, nausea TECHNIQUE: After the administration of intravenous contrast, axial sections acquired from the lung bases to the pubic symphysis. Coronal and sagittal reformats were performed. For radiation dose reduction, the following was used: automated exposure control, adjustment of mA and/or kV according to patient size. COMPARISON: None. FINDINGS: Image quality: Excellent. Lung bases: Unremarkable. Heart: No significant findings. ABDOMEN: Liver: Unremarkable. Gallbladder: Surgically absent Biliary ducts: Unremarkable. Pancreas: Unremarkable. Spleen: Unremarkable. Adrenal Glands: Unremarkable. Kidneys and Ureters: Unremarkable. Stomach and Bowel: A probable normal appendix is identified. There is moderately large right colonic and transverse colonic fecal debris. There are mildly prominent fluid-filled small bowel loops present in the right lower quadrant, none of which are abnormally dilated, measuring only as much as 2.1 cm. Peritoneum: No abnormal intraperitoneal fluid. No free air. Ventral Wall: No hernias. Abdominal Nodes: No retroperitoneal or mesenteric adenopathy by size criteria. Vessels: Aorta and inferior vena cava are normal in size. PELVIS: Pelvic Organs: Surgically absent. Bladder: Unremarkable. Pelvic Nodes: No enlarged lymph nodes. Miscellaneous: Small fat containing left inguinal hernia. Bones: Remote posterior lateral unipedicular fusion at L4-L5 with interbody spacer placement. Lumbar degenerative change. Scoliotic curvature. IMPRESSION: 1. A probable normal appendix is identified. No secondary signs of acute appendicitis. 2. No acute intra-abdominal process noted. 3. Moderately large fecal load. 4. Remote cholecystectomy and hysterectomy. Dictated by: Sharath Flores M.D. on 03/12/2023 at 11:44 Approved by: Sharath Flores M.D. on 03/12/2023 at 11:53
[2023-03-12] MEDS: SODIUM CHLORIDE 0.9% 1,000 ML 1000 ML IV (10:55)
[2023-03-12 11:01] VITALS: PULSE 60
[2023-03-12 11:03] LABS: Add Manual Diff / Slide Review NO; Basophils Absolute Auto 0 /uL (0-100); Basophils Percent Auto 0.1 % (0-2); Eosinophils Absolute Auto 0 /uL (0-450); Eosinophils Percent Auto 0.1 % (2-4); Hematocrit 35.8 % (36-46); Hemoglobin 12.4 g/dL (12.0-16.0); Lymphocytes Absolute Auto 1300 /uL (1100-4500); Mean Corpuscular HGB Conc 34.7 % (30-36); Mean Corpuscular Hemoglobin 31.8 PG (26-34); Mean Corpuscular Volume 91.6 fL (80-100); Monocytes Absolute Auto 600 /uL (0-900); Monocytes Percent Auto 11.8 % (3-14); Neutrophils Absolute Auto 2900 /uL (1500-7000); Platelet Count 172 X10^3/uL (150-400); Red Blood Cell Count 3.91 X10^6/uL (4.0-5.2); Red Cell Distribution Width 14.1 % (11.6-14.8); White Blood Cell Count 4.7 X10^3/uL (4.5-11.0)
[2023-03-12 11:04] VITALS: BP 134/64; PULSE 56; RESP 17; O2SAT 95
[2023-03-12 11:05] LABS: Lactate (Lactic Acid) 0.6 mmol/L (0.7-2.1)
[2023-03-12 11:07] LABS: Alanine Aminotransferase 30 IU/L (<35); Albumin 4.3 g/dL (3.5-5.0); Albumin Globulin Ratio 1.5 (1.0-2.8); Alkaline Phosphatase 73 U/L (38-126); Aspartate Aminotransferase 38 IU/L (14-36); BUN Creatinine Ratio 13.4 (6-22); Bilirubin Total 0.4 mg/dL (0.2-1.3); Blood Urea Nitrogen 16 mg/dL (7-17); Calcium 9.8 mg/dL (8.4-10.2); Carbon Dioxide 28 mmol/L (22-32); Chloride 101 mmol/L (98-107); Estimated Glomerular Filt Rate 49 mL/min (>60); Globulin 2.8 g/dL (1.7-4.1); Glucose 94 mg/dL (80-110); HEMOLYSIS < 15 (0-50); Lipase 104 U/L (23-300); Potassium 4.5 mmol/L (3.4-5.1); Sodium 133 mmol/L (137-145); Total Protein 7.1 g/dL (6.3-8.2)
== END 2023-03-12 12:44 | disposition home or self-care (01) ==
PROVIDERS: Emergency Provider Emergency Medicine; PCP Student in an Organized Health Care Education/Training Program
DX: R10.31 Right lower quadrant pain (principal)
CPT/HCPCS: 36415; 74177; 80053; 81003; 83605; 83690; 85025; 93005; 93010; 99284; Q9967

== ENCOUNTER → 2023-03-13 12:21 | Outpatient (CLI) | payer MEDICARE, OTHER, SELFPAY ==
--- NOTE | 2023-03-13 | DI.MG.S_ITS ---
BILATERAL DIGITAL SCREENING MAMMOGRAM 3D/2D WITH CAD: 03/13/2023 CLINICAL: Routine screening. Comparison is made to exams dated: 03/12/2022 mammogram, 01/25/2021 mammogram, and 01/25/2020 mammogram - [facility]. There are scattered areas of fibroglandular density in both breasts (category b / 25%-50% glandular tissue). Current study was also evaluated with a Computer Aided Detection (CAD) system. There are benign vascular calcifications in the left breast. No significant masses, calcifications, or other findings are seen in either breast. There has been no significant interval change. IMPRESSION: BENIGN There is no mammographic evidence of malignancy. A 1 year screening mammogram is recommended. Based on the Tyrer Cuzick model (a risk assessment model) the patient's lifetime risk is 5.7% and her 10 year risk is 3.9%. According to the ACR, ACS, and NCCN guidelines, an annual breast MRI exam along with mammogram is recommended if the patient's lifetime risk is 20% or greater. This exam was interpreted at Station ID: [id number]. NOTE: For mammograms, a report in lay terms will be sent to the patient. Approximately 15% of breast malignancies will not be visualized mammographically. In the management of a palpable breast mass, a negative mammogram must not discourage biopsy of a clinically suspicious lesion. Electronically Signed By: Jaquan berg/stephon:03/13/2023 12:48:47 letter sent: Normal Exam ACR BI-RADS Category 2: Benign Finding(s) [id number]
== END ==
PROVIDERS: PCP Student in an Organized Health Care Education/Training Program; Referring Provider Student in an Organized Health Care Education/Training Program; Visit Provider Student in an Organized Health Care Education/Training Program
DX: Z12.31 Encounter for screening mammogram for malignant neoplasm of breast (principal)
CPT/HCPCS: 77063; 77067

== ENCOUNTER → 2023-06-16 10:02 | Outpatient (CLI) | payer MEDICARE, OTHER, SELFPAY | PROVIDERS: PCP Student in an Organized Health Care Education/Training Program; Visit Provider Physician Assistant | DX: N89.8 Other specified noninflammatory disorders of vagina (principal); R30.0 Dysuria | CPT/HCPCS: 87086; 87210 ==

== ENCOUNTER → 2023-06-20 07:59 | Outpatient (CLI) | payer MEDICARE, OTHER, SELFPAY ==
[2023-06-24 12:58] LABS: Lamotrigine Lamictal 4.9 ug/mL (2.0-20.0)
== END ==
PROVIDERS: PCP Student in an Organized Health Care Education/Training Program; Referring Provider Psychiatry & Neurology Psychiatry; Visit Provider Psychiatry & Neurology Psychiatry
DX: F31.12 Bipolar disorder, current episode manic without psychotic features, moderate (principal); Z51.81 Encounter for therapeutic drug level monitoring
CPT/HCPCS: 36415; 80175

== ENCOUNTER 2023-06-24 14:49 | Emergency (ER) | payer MEDICARE, OTHER, SELFPAY ==
[2023-06-24 15:04] VITALS: BP 118/66; PULSE 65; RESP 18; TEMP 36.3; O2SAT 96; BMI 31.4
--- NOTE | 2023-06-24 15:09 | DI.RAD.S_ITS ---
PROCEDURE: XR KNEE RT 3V INDICATIONS: Fall with hip pain TECHNIQUE: 3 views of the knee were acquired. COMPARISON: [facility], , KNEE 3V LEFT, 06/28/2013, 16:54. FINDINGS: Bones: No fractures or dislocations. No suspicious bony lesions. Tricompartmental degenerative changes Soft tissues: No joint effusion. No suspicious soft tissue calcifications. Mild chondrocalcinosis of the medial and lateral femorotibial compartments.. IMPRESSION: Right knee without acute fracture or dislocation. Chondrocalcinosis Dictated by: Irvin Griffin M.D. on 06/24/2023 at 16:10 Approved by: Irvin Griffin M.D. on 06/24/2023 at 16:11
--- NOTE | 2023-06-24 15:09 | DI.RAD.S_ITS ---
PROCEDURE: XR HIP W PEL IF DONE RT 2V INDICATIONS: Fall with hip pain TECHNIQUE: AP pelvis with lateral view(s) of the right hip(s). COMPARISON: None. FINDINGS: Bones: No fractures or dislocations. Pelvic ring appears intact. No suspicious bony lesions. Posterior spinal fusion of L5-S1 with right-sided paraspinal rods and pedicular screws. Mild degenerative changes of the bilateral hips. Soft tissues: The visualized bowel gas pattern is normal. No suspicious soft tissue calcifications. IMPRESSION: Right hip without acute fracture or dislocation. Mild degenerative changes of the right hip. If there are persistent symptoms or clinical suspicion for pathology, then repeat radiographs or advanced imaging (CT or MRI) may be considered for further evaluation. Dictated by: Irvin Griffin M.D. on 06/24/2023 at 16:12 Approved by: Irvin Griffin M.D. on 06/24/2023 at 16:13
[2023-06-24 17:07] VITALS: BP 112/59; PULSE 64; RESP 18; TEMP 36.7; O2SAT 97
--- NOTE | 2023-06-24 17:07 | ED.LOWEXIN ---
HPI - Extremity Injury (Lower) <John Maria PA-C - Last Filed: 06/24/23 17:11> General Chief Complaint: Extremity Injury, Lower Stated Complaint: FELL T-1/lt knee pain/hip pain Time Seen by Provider: 06/24/23 16:42 Source: patient Mode of arrival: Ambulatory History of Present Illness HPI Narrative: 73-year-old female with past medical history bipolar disorder, anxiety, stage 3 chronic kidney disease, obstructive sleep apnea, IBS presents to the ED status post a mechanical fall sustained yesterday afternoon. Patient states that she tripped and fell striking her knee on a concrete wall yesterday. Patient complains of right-sided knee and hip pain. Patient denies numbness, tingling, weakness. No other injuries. No loss of consciousness. Patient notes swelling and pain at the site of the injury, has been icing it. Related Data Home Medications Medication Instructions Recorded Confirmed diphenhydramine HCl 25 mg tablet 25 mg PO PRN PRN ##0 09/16/17 06/16/23 (Benadryl Allergy) BIPAP inhalation 12/20/20 06/16/23 cholecalciferol (vitamin D3) 50 1,000 mcg PO DAILY 01/31/21 06/16/23 mcg (2,000 unit) capsule docusate sodium 100 mg capsule 200 mg PO DAILY 03/01/21 06/16/23 (Colace) psyllium husk 0.52 gram capsule 0.52 g PO DAILY 03/01/21 06/16/23 (Metamucil) ascorbic acid (vitamin C) 500 mg 500 mg PO DAILY 02/28/22 06/16/23 tablet conjugated estrogens 0.3 mg tablet 0.3 mg PO DAILY 02/28/22 06/16/23 (Premarin) felodipine 10 mg tablet,extended 10 mg PO DAILY 90 days 02/28/22 06/16/23 release 24 hr levothyroxine 88 mcg tablet 88 mcg PO DAILY 02/28/22 06/16/23 (Synthroid) metoprolol succinate 25 mg 25 mg PO DAILY 90 days 02/28/22 06/16/23 tablet,extended release 24 hr montelukast 10 mg tablet 10 mg PO DAILY 90 days 02/28/22 06/16/23 simvastatin 20 mg tablet 20 mg PO DAILY 90 days 02/28/22 06/16/23 turmeric 1 cap PO DAILY 02/28/22 06/16/23 Previous Rx's Medication Instructions Recorded lamotrigine 100 mg tablet 200 mg (2 x 100 mg) PO QDAY #180 11/05/22 (Lamictal) tabs hydroxyzine HCl 10 mg tablet 10 mg PO QID PRN anxiety #90 tabs 03/25/23 lurasidone 40 mg tablet (Latuda) 40 mg PO HS #90 tabs 03/25/23 sulfamethoxazole 800 1 tab PO BID #6 tabs 06/16/23 mg-trimethoprim 160 mg tablet (Bactrim DS) Allergies Allergy/AdvReac Type Severity Reaction Status Date / Time Opioids - Morphine Analogues Allergy Severe long Verified 06/24/23 15:03 lasting intense rashes hydromorphone [HYDROMORPHONE] Allergy Unknown Verified 06/24/23 15:03 hydrocodone [HYDROCODONE] AdvReac Mild itching Verified 06/24/23 15:03 oxycodone [OXYCODONE] AdvReac Mild itching Verified 06/24/23 15:03 NSAIDS (Non-Steroidal AdvReac Unknown Verified 06/24/23 15:03 Anti-Inflamma [NSAIDS (NON-STEROIDAL ANTI-INFLAMMA] ANTHISTAMINE Allergy Intermediate HIVES,ITCHI Uncoded 06/24/23 15:03 NG Review of Systems <John Maria PA-C - Last Filed: 06/24/23 17:11> Constitutional Constitutional: Denies chills, Denies fatigue, Denies fever(s), Denies frequent falls, Denies lethargy and Denies weakness Eyes Eyes: Denies change in vision, Denies eye discharge, Denies irritation and Denies loss of vision ENT Ears, Nose, Mouth, and Throat: Denies change in voice, Denies dizziness, Denies neck pain, Denies sore throat and Denies throat swelling Cardiovascular Cardiovascular: Denies chest pain, Denies irregular heart rhythm, Denies lightheadedness, Denies palpitations, Denies dyspnea, Denies dyspnea on exertion and Denies orthopnea Respiratory Respiratory: Denies cough, Denies dyspnea, Denies dyspnea on exertion and Denies wheezing Gastrointestinal Gastrointestinal: Denies abdominal pain, Denies change in bowel habits, Denies diarrhea, Denies nausea and Denies vomiting Musculoskeletal Musculoskeletal: Denies neck pain and Denies numbness Comments: Right knee and hip pain Integumentary/Breasts Skin/Breast: Denies pruritus, Denies erythema, Denies rash and Denies wounds Neurologic Neurologic: Denies behavioral changes, Denies confusion, Denies dizziness, Denies frequent falls, Denies loss of vision, Denies numbness and Denies weakness Psychiatric Psychiatric: Denies anxiety, Denies behavioral changes, Denies confusion, Denies depression, Denies homicidal ideation and Denies suicidal ideation Endocrine Endocrine: Denies fatigue, Denies flushing and Denies palpitations Hematologic/Lymphatic Hematologic/Lymphatic: Denies easy bruising Allergic/Immunologic Allergic/Immunologic: Denies urticaria, Denies throat swelling and Denies wheezing Patient History <John Maria PA-C - Last Filed: 06/24/23 17:11> Medical History Nocturnal hypoxemia Anxiety disorder Snoring Obstructive sleep apnea of adult History of IBS Bipolar disorder, unspecified Stress at home Alcohol use disorder, moderate, in sustained remission Bipolar 1 disorder with moderate divya Surgical History History of bilateral knee arthroplasty History of lumbar laminectomy History of rotator cuff surgery History of vein stripping History of cholecystectomy Social History seatbelt use: always do you feel safe at home: Yes Smoking Status: Never smoker second hand exposure: Yes (asthma) alcohol intake: former substance use type: hallucinogens during the past year weight has: remained stable Type(s) of exercise: walking Smoking Status: Never smoker alcohol intake frequency: 0-2 drinks per day Substance Use Type: does not use Exam <John Maria PA-C - Last Filed: 06/24/23 17:11> Narrative Exam Narrative: Const General:?cooperative, healthy appearing and comfortable [facility] Head:?normal to inspection Ears:?hearing grossly normal bilaterally Nose:?external nose normal Face and sinus:?normal facial exam and sinuses nontender Mouth:?oral mucosae normal Throat:?posterior oropharynx normal Eyes General:?appearance normal, both eyes and all related structures Neck Neck:?normal visual inspection and no lymphadenopathy noted Resp Effort & Inspection:?normal respiratory effort Auscultation:?clear to auscultation bilaterally Cardio Rate:?regular rate Rhythm:?regular rhythm Musculoskeletal Right knee appear somewhat swollen. No deformities. Full range of motion. Gait is normal. Strength and sensation is intact. Patient is neurovascularly intact. Neuro General:?patient alert, patient awake and patient oriented x3 Initial Vital Signs Initial Vital Signs: Vital Signs Temperature 97.4 F L 06/24/23 15:04 Pulse Rate 65 06/24/23 15:04 Respiratory Rate 18 06/24/23 15:04 Blood Pressure 118/66 06/24/23 15:04 Pulse Oximetry 96 06/24/23 15:04 Oxygen Delivery Method Room Air 06/24/23 15:04 <Scotty Bravo MD - Last Filed: 06/25/23 08:08> Initial Vital Signs Initial Vital Signs: Vital Signs Temperature 97.4 F L 06/24/23 15:04 Pulse Rate 65 06/24/23 15:04 Respiratory Rate 18 06/24/23 15:04 Blood Pressure 118/66 06/24/23 15:04 Pulse Oximetry 96 06/24/23 15:04 Oxygen Delivery Method Room Air 06/24/23 15:04 Course <John Maria PA-C - Last Filed: 06/24/23 17:11> Orders Ordered: ED Orders 06/24/23 15:09 XR hip w pel if done RT 2V Stat XR knee RT 3V Stat Vital Signs Vital signs: Vital Signs - 8 hr 06/24/23 15:04 Temperature 97.4 F L Pulse Rate 65 Respiratory Rate 18 Blood Pressure 118/66 Pulse Oximetry 96 Oxygen Delivery Method Room Air <Scotty Bravo MD - Last Filed: 06/25/23 08:08> Orders Ordered: ED Orders 06/24/23 15:09 XR hip w pel if done RT 2V Stat XR knee RT 3V Stat Vital Signs Vital signs: Vital Signs - 8 hr 06/24/23 15:04 Temperature 97.4 F L Pulse Rate 65 Respiratory Rate 18 Blood Pressure 118/66 Pulse Oximetry 96 Oxygen Delivery Method Room Air MDM - Extremity Injury (Lower) <John Maria PA-C - Last Filed: 06/24/23 17:11> MDM Narrative Medical decision making narrative: 73-year-old female with past medical history bipolar disorder, anxiety, stage 3 chronic kidney disease, obstructive sleep apnea, IBS presents to the ED status post a mechanical fall sustained yesterday afternoon. Concern for fracture/dislocation versus musculoskeletal sprain/strain versus other. Obtained x-rays which did not show any acute findings. Patient's symptoms likely due to musculoskeletal sprain/strain. Recommend supportive measures with lidocaine patches, icing, heat packs, ibuprofen, Tylenol. Recommend follow-up with PCP as soon as possible. ED return precautions discussed with patient. Patient verbalized understanding. Medical records reviewed: Yes Discharge Plan Departure Patient Disposition: Home Clinical Impression: Knee pain Qualifiers: Chronicity: acute Laterality: right Qualified Code(s): M25.561 - Pain in right knee Instructions: DI for Knee Pain Activity Restrictions/Additional Instructions: You were evaluated in the ED today for right-sided knee and hip pain. Your x-rays were normal. Your symptoms are likely due to musculoskeletal sprain/strain from the fall yesterday. You may continue icing for the next day, followed by heat packs. You may apply lidocaine patches, take Tylenol and ibuprofen for symptom relief. Please follow-up with your PCP as soon as possible. Return to the ED if you have worsening symptoms, numbness, tingling, weakness. Prescriptions: No Action sulfamethoxazole-trimethoprim [Bactrim DS] 800-160 mg tablet 1 tab PO BID Qty: 6 0RF felodipine 10 mg tablet extended release 24 hr 10 mg PO DAILY 90 Days metoprolol succinate 25 mg tablet extended release 24 hr 25 mg PO DAILY 90 Days simvastatin 20 mg tablet 20 mg PO DAILY 90 Days montelukast 10 mg tablet 10 mg PO DAILY 90 Days BIPAP inhalation docusate sodium [Colace] 100 mg capsule 200 mg PO DAILY psyllium husk [Metamucil] 0.52 gram capsule 0.52 g PO DAILY ascorbic acid (vitamin C) 500 mg tablet 500 mg PO DAILY Premarin 0.3 mg tablet 0.3 mg PO DAILY levothyroxine [Synthroid] 88 mcg tablet 88 mcg PO DAILY turmeric 1 cap PO DAILY lamotrigine [Lamictal] 100 mg tablet 200 mg PO QDAY Qty: 180 3RF hydroxyzine HCl 10 mg tablet 10 mg PO QID PRN (Reason: anxiety) Qty: 90 3RF Latuda 40 mg tablet 40 mg PO HS Qty: 90 3RF diphenhydramine HCl [Benadryl Allergy] 25 MG tablet 25 mg PO PRN PRNQty: 0 cholecalciferol (vitamin D3) 50 mcg (2,000 unit) capsule 1,000 mcg PO DAILY Referrals: Radha Bolivar MD [Primary Care Provider] - Stand Alone Forms: Patient Portal/API ED Sign-out <Scotty Bravo MD - Last Filed: 06/25/23 08:08> Cosign ED Attending Lexaature Attestation: I was immediately available in the department for consultation. ?This documentation has been reviewed and I agree with assessment and plan. Supervised by Scotty Bravo MD
== END 2023-06-24 17:17 | disposition home or self-care (01) ==
PROVIDERS: Emergency Provider Student in an Organized Health Care Education/Training Program; PCP Student in an Organized Health Care Education/Training Program
DX: M25.561 Pain in right knee (principal); M25.551 Pain in right hip; W01.0XXA Fall on same level from slipping, tripping and stumbling without subsequent striking against object, initial encounter; F31.31 Bipolar disorder, current episode depressed, mild; F41.9 Anxiety disorder, unspecified; T88.7XXA Unspecified adverse effect of drug or medicament, initial encounter; N18.31 Chronic kidney disease, stage 3a; Z79.899 Other long term (current) drug therapy
CPT/HCPCS: 73502; 73562; 99214; 99281; 99283

== ENCOUNTER → 2023-09-16 09:21 | Outpatient (CLI) | payer MEDICARE, OTHER, SELFPAY ==
[2023-09-16 10:12] LABS: Albumin 4.5 g/dL (3.5-5.0); Albumin Globulin Ratio 1.5 (1.0-2.8); Alkaline Phosphatase 49 U/L (38-126); Aspartate Aminotransferase 35 IU/L (14-36); BUN Creatinine Ratio 16.5 (6-22); Bilirubin Total 0.7 mg/dL (0.2-1.3); Blood Urea Nitrogen 21 mg/dL (7-17); Calcium 10.7 mg/dL (8.4-10.2); Carbon Dioxide 28 mmol/L (22-32); Chloride 98 mmol/L (98-107); Estimated Glomerular Filt Rate 45 mL/min (>60); Glucose 90 mg/dL (80-110); HEMOLYSIS < 15 (0-50); Potassium 5.1 mmol/L (3.4-5.1); Sodium 134 mmol/L (137-145); Total Protein 7.5 g/dL (6.3-8.2)
[2023-09-16 10:14] LABS: Alanine Aminotransferase 24 IU/L (<35)
[2023-09-19 16:36] LABS: Lamotrigine Lamictal 10.3 ug/mL (2.0-20.0)
== END ==
PROVIDERS: PCP Student in an Organized Health Care Education/Training Program; Referring Provider Psychiatry & Neurology Psychiatry; Visit Provider Psychiatry & Neurology Psychiatry
DX: F31.31 Bipolar disorder, current episode depressed, mild (principal); F41.9 Anxiety disorder, unspecified; N18.31 Chronic kidney disease, stage 3a; T88.7XXA Unspecified adverse effect of drug or medicament, initial encounter; Z79.899 Other long term (current) drug therapy
CPT/HCPCS: 36415; 80053; 80175; 99214

== ENCOUNTER → 2023-10-13 08:56 | Outpatient (CLI) | payer MEDICARE, OTHER, SELFPAY ==
--- NOTE | 2023-10-13 08:58 | DI.ECHO.S_ITS ---
[facility] +---------+ : : [address] : : : : [id number] : : : : Phone: [phone]+ Echocardiogram Report + + :Name: INNA MARTINEZ Study Date: 10/13/2023 Height: 63 in : :[facility] ReadingLocation: Weight: 177 lb : : Gender: Female BSA: 1.8 m2 : :: 1950 Age: 73 yrs BP: 129/75 mmHg: :Reason For Study: LBBB : :Ordering Physician: ARIELLA, : :BAHMAN Performed By: Raúl Escamilla : :Referring: BAHMAN STEINER : + + Interpretation Summary 1) Normal left ventricular thickness, size, and systolic function (EF 55-60%). 2) Normal right ventricular size and function. 3) No significant valvular abnormalities. 4) No prior Echo available for comparison. Procedure: A two-dimensional transthoracic echocardiogram with color flow and Doppler was performed. The study quality was technically adequate. There is no prior echocardiogram noted for this patient. The patient had a bundle branch block rhythm during the exam. The heart rate ranged between 58-69 bpm during the study. Left Ventricle: The left ventricle is normal in size and wall thickness. The ejection fraction is estimated to be 55-60%. Septal motion is consistent with conduction abnormality. Diastolic parameters suggest a relaxation abnormality of the left ventricle, consistent with probable normal filling pressures. Right Ventricle: The right ventricle is normal size. The right ventricular systolic function is normal. Atria: The left atrial size is normal. Right atrial size is normal. Mitral Valve: The mitral valve is normal in structure and function. There is no mitral valve stenosis. There is trace mitral regurgitation. Aortic Valve: The aortic valve is trileaflet. The aortic valve opens well. There is no aortic valve stenosis. No aortic regurgitation is present. Tricuspid Valve: The tricuspid valve is normal in structure and function. There is no tricuspid stenosis. There is trace tricuspid regurgitation. The right ventricular systolic pressure is estimated to be at least 24 mmHg based on an estimated right atrial pressure of 3 mm Hg. Pulmonic Valve: The pulmonic valve is not well visualized. There is no pulmonic valvular stenosis. There is no pulmonic valvular regurgitation. Great Vessels: The aortic root is normal size. The ascending aorta could not be visualized. The IVC is of normal diameter and collapses greater than 50% with a sniff. This suggests a low right atrial pressure of 3 mm Hg. Pericardium/ Pleura There is no pericardial effusion. There is no pleural effusion. MMode/2D Measurements & Calculations LVIDd: 4.6 cm LVOT diam: 2.2 cm LVIDs: 3.2 cm Ao root diam: 3.1 cm FS: 30.9 % asc Aorta Diam: 3.4 cm IVSd: 1.0 cm Ao Arch Diam (Prox Trans): 2.4 cm LVPWd: 0.89 cm LV erickson. diameter/BSA (cm/m^2): 2.5 LV sys. diameter/BSA (cm/m^2): 1.7 LA A2 area: 15.1 cm2 RA long axis: 3.9 cm LA A4 area: 17.6 cm2 RA area: 10.0 cm2 LA length (vol): 4.6 cm RA vol: 21.4 ml LA vol: 48.8 ml RA : 11.7 ml/m2 LA vol index: 26.6 ml/m2 IVC diam: 1.1 cm RVD1 (basal): 3.4 cm RVD2 (mid): 2.6 cm TAPSE: 3.0 cm Doppler Measurements & Calculations Ao V2 max: 115.7 cm/sec LVOT Max Tom: 93.9 cm/sec Ao V2 mean: 79.3 cm/sec LV V1 max P.5 mmHg Ao max P.4 mmHg LV V1 VTI: 22.2 cm Ao mean P.8 mmHg JOSE(I,D): 3.1 cm2 Ao V2 VTI: 26.2 cm JOSE(V,D): 3.0 cm2 sev ratio: 0.85 JOSE indexed to BSA (cm^2/m^2): 1.7 MV E max tom: 44.4 cm/sec TR max tom: 230.9 cm/sec MV A max tom: 75.3 cm/sec TR max P.3 mmHg MV E/A: 0.59 PA V2 max: 79.6 cm/sec Med Peak E' Tom: 4.5 cm/sec PA V2 mean: 55.3 cm/sec E/E' med: 9.9 PA mean P.4 mmHg Lat Peak E' Tom: 5.7 cm/sec PA pr(Accel): 36.2 mmHg E/E' lat: 7.7 E/e' average: 8.8 MV dec time: 0.22 sec SV(LVOT): 81.1 ml Reading Physician:03:13 PM
== END ==
LOC: ECHO 08:57
PROVIDERS: PCP Student in an Organized Health Care Education/Training Program; Referring Provider Internal Medicine Cardiovascular Disease; Visit Provider Internal Medicine Cardiovascular Disease
DX: I44.7 Left bundle-branch block, unspecified (principal); R01.1 Cardiac murmur, unspecified
CPT/HCPCS: 93306

== ENCOUNTER → 2024-02-17 16:17 | Outpatient (CLI) | payer MEDICARE, OTHER, SELFPAY ==
[2024-02-17 17:11] LABS: Add Manual Diff / Slide Review NO; Basophils Absolute Auto 0 /uL (0-100); Basophils Percent Auto 0.3 % (0-2); Eosinophils Absolute Auto 0 /uL (0-450); Eosinophils Percent Auto 0.1 % (2-4); Hematocrit 37.8 % (36-46); Hemoglobin 13.1 g/dL (12.0-16.0); Lymphocytes Absolute Auto 1600 /uL (1100-4500); Mean Corpuscular HGB Conc 34.6 % (30-36); Mean Corpuscular Hemoglobin 31.7 PG (26-34); Mean Corpuscular Volume 91.7 fL (80-100); Monocytes Absolute Auto 700 /uL (0-900); Monocytes Percent Auto 12.8 % (3-14); Neutrophils Absolute Auto 3100 /uL (1500-7000); Neutrophils Percent Auto 57.8 % (50-75); Platelet Count 205 X10^3/uL (150-400); Red Blood Cell Count 4.12 X10^6/uL (4.0-5.2); Red Cell Distribution Width 13.8 % (11.6-14.8); White Blood Cell Count 5.4 X10^3/uL (4.5-11.0)
[2024-02-17 17:21] LABS: Hemoglobin A1C% w Est Avg Glu 5.2 % (4.0-6.0)
[2024-02-17 18:05] LABS: BUN Creatinine Ratio 19.7 (6-22); Blood Urea Nitrogen 26 mg/dL (7-17); Carbon Dioxide 28 mmol/L (22-32); Chloride 102 mmol/L (98-107); Estimated Glomerular Filt Rate 43 mL/min (>60); Glucose 97 mg/dL (80-110); HEMOLYSIS < 15 (0-50); Potassium 4.6 mmol/L (3.4-5.1); Sodium 137 mmol/L (137-145)
== END ==
PROVIDERS: PCP Student in an Organized Health Care Education/Training Program; Referring Provider Orthopaedic Surgery Foot and Ankle Surgery; Visit Provider Orthopaedic Surgery Foot and Ankle Surgery
DX: Z01.812 Encounter for preprocedural laboratory examination (principal); R73.9 Hyperglycemia, unspecified
CPT/HCPCS: 36415; 80048; 83036; 85025

== ENCOUNTER → 2024-06-05 08:41 | Outpatient (CLI) | payer MEDICARE, OTHER, SELFPAY ==
--- NOTE | 2024-06-05 | DI.MG.S_ITS ---
BILATERAL DIGITAL SCREENING MAMMOGRAM 3D/2D WITH CAD: 06/05/2024 CLINICAL: Routine screening. Comparison is made to exams dated: 03/13/2023 mammogram, 03/12/2022 mammogram, 01/25/2021 mammogram, 01/25/2020 mammogram - [facility], and 09/16/2018 mammogram - [facility]. There are scattered areas of fibroglandular density (category b / 25%-50% glandular tissue). Current study was also evaluated with a Computer Aided Detection (CAD) system. No significant masses, calcifications, or other findings are seen in either breast. There has been no significant interval change. IMPRESSION: NEGATIVE There is no mammographic evidence of malignancy. A 1 year screening mammogram is recommended. Based on the Tyrer Cuzick model (a risk assessment model) the patient's lifetime risk is 3.6% and her 10 year risk is 2.6%. According to the ACR, ACS, and NCCN guidelines, an annual breast MRI exam along with mammogram is recommended if the patient's lifetime risk is 20% or greater. This exam was interpreted at Station ID: [id number]. NOTE: For mammograms, a report in lay terms will be sent to the patient. Approximately 15% of breast malignancies will not be visualized mammographically. In the management of a palpable breast mass, a negative mammogram must not discourage biopsy of a clinically suspicious lesion. Electronically Signed By: Sussy Almanzar M.D., Ph.D. juana/stephon:06/08/2024 00:39:52 letter sent: Normal Exam ACR BI-RADS Category 1: Negative
== END ==
PROVIDERS: PCP Family Medicine; Referring Provider Family Medicine; Visit Provider Family Medicine
DX: Z12.31 Encounter for screening mammogram for malignant neoplasm of breast (principal)
CPT/HCPCS: 77063; 77067

== ENCOUNTER → 2024-07-16 07:26 | Outpatient (CLI) | payer MEDICARE, OTHER, SELFPAY ==
[2024-07-16 09:05] LABS: Alanine Aminotransferase 20 IU/L (<35); Albumin 4.5 g/dL (3.5-5.0); Alkaline Phosphatase 85 U/L (38-126); Aspartate Aminotransferase 32 IU/L (14-36); BUN Creatinine Ratio 12.2 (6-22); Bilirubin Total 0.5 mg/dL (0.2-1.3); Blood Urea Nitrogen 15 mg/dL (7-17); Calcium 9.9 mg/dL (8.4-10.2); Carbon Dioxide 28 mmol/L (22-32); Chloride 100 mmol/L (98-107); Cholesterol 198 mg/dL (140-199); Estimated Glomerular Filt Rate 47 mL/min (>60); Globulin 2.3 g/dL (1.7-4.1); Glucose 93 mg/dL (80-110); HDL Cholesterol 92 mg/dL (40-60); HEMOLYSIS < 15 (0-50); LDL Cholesterol Calculated 94 mg/dL (<100); Potassium 4.5 mmol/L (3.4-5.1); Sodium 136 mmol/L (137-145); Total Protein 6.8 g/dL (6.3-8.2); Triglycerides 61 mg/dL (35-150)
[2024-07-20 14:09] LABS: Lamotrigine Lamictal 8.1 ug/mL (2.0-20.0)
== END ==
PROVIDERS: PCP Family Medicine; Referring Provider Psychiatry & Neurology Psychiatry; Visit Provider Psychiatry & Neurology Psychiatry
DX: F31.61 Bipolar disorder, current episode mixed, mild (principal); Z79.899 Other long term (current) drug therapy; F41.9 Anxiety disorder, unspecified; N18.31 Chronic kidney disease, stage 3a
CPT/HCPCS: 36415; 80053; 80061; 80175; 84439; 84443

== ENCOUNTER → 2024-09-09 12:38 | Outpatient (CLI) | payer MEDICARE, OTHER, SELFPAY | PROVIDERS: PCP Family Medicine; Visit Provider Nurse Practitioner Family | DX: S99.929A Unspecified injury of unspecified foot, initial encounter (principal); X58.XXXA Exposure to other specified factors, initial encounter | CPT/HCPCS: 87070; 87205 ==

== ENCOUNTER → 2025-01-21 11:06 | Outpatient (CLI) | payer MEDICARE, OTHER, SELFPAY ==
[2025-01-21 11:48] LABS: Add Manual Diff / Slide Review NO; Basophils Absolute Auto 0 /uL (0-100); Basophils Percent Auto 0.1 % (0-2); Eosinophils Absolute Auto 0 /uL (0-450); Hematocrit 39.5 % (36-46); Hemoglobin 13.7 g/dL (12.0-16.0); Lymphocytes Absolute Auto 1200 /uL (1100-4500); Lymphocytes Percent Auto 24.2 % (25-40); Mean Corpuscular HGB Conc 34.7 % (30-36); Mean Corpuscular Hemoglobin 31.7 PG (26-34); Mean Corpuscular Volume 91.4 fL (80-100); Monocytes Absolute Auto 600 /uL (0-900); Monocytes Percent Auto 11.7 % (3-14); Neutrophils Absolute Auto 3300 /uL (1500-7000); Platelet Count 204 X10^3/uL (150-400); Red Blood Cell Count 4.32 X10^6/uL (4.0-5.2); Red Cell Distribution Width 13.7 % (11.6-14.8); White Blood Cell Count 5.1 X10^3/uL (4.5-11.0)
[2025-01-21 12:06] LABS: Alanine Aminotransferase 28 IU/L (<35); Albumin 4.9 g/dL (3.5-5.0); Alkaline Phosphatase 67 U/L (38-126); Aspartate Aminotransferase 41 IU/L (14-36); BUN Creatinine Ratio 13.3 (6-22); Bilirubin Total 0.6 mg/dL (0.2-1.3); Blood Urea Nitrogen 15 mg/dL (7-17); Calcium 10.2 mg/dL (8.4-10.2); Carbon Dioxide 27 mmol/L (22-32); Chloride 101 mmol/L (98-107); Estimated Glomerular Filt Rate 52 mL/min (>60); Globulin 2.5 g/dL (1.7-4.1); Glucose 80 mg/dL (70-99); HEMOLYSIS < 15 (0-50); Potassium 4.8 mmol/L (3.4-5.1); Sodium 136 mmol/L (137-145); Total Protein 7.4 g/dL (6.3-8.2)
== END ==
PROVIDERS: PCP Family Medicine; Referring Provider Psychiatry & Neurology Psychiatry; Visit Provider Psychiatry & Neurology Psychiatry
DX: F31.9 Bipolar disorder, unspecified (principal); Z79.899 Other long term (current) drug therapy
CPT/HCPCS: 36415; 80053; 80175; 85025

== ENCOUNTER 2025-03-18 13:56 | Observation (INO) | payer MEDICARE, OTHER, SELFPAY ==
[2025-03-18] VITALS (23 sets, daily range): BP systolic 114–174; BP diastolic 59–86; PULSE 71–91; RESP 16–23; TEMP 36.8; O2SAT 93–97; BMI 32.3
--- NOTE | 2025-03-18 14:27 | DI.CT.S_ITS ---
PROCEDURE: CT HEAD/BRAIN WO CON INDICATIONS: trauma TECHNIQUE: Noncontrast 4.5 mm thick angled axial sections acquired from the foramen magnum to the vertex, with coronal and sagittal reformats. For radiation dose reduction, the following was used: automated exposure control, adjustment of mA and/or kV according to patient size. COMPARISON: None. FINDINGS: Image quality: Diagnostic. CSF spaces: Basal cisterns are patent. No extra-axial fluid collections. The ventricles are symmetric in size and shape. Brain: No intracranial bleeds or mass effect. There is cerebral volume loss, with resultant ventricular and sulcal prominence. There are periventricular and deep white matter chronic small vessel ischemic changes. There is intracranial internal carotid artery atherosclerosis. Skull and face: Calvarium and visualized facial bones appear intact, without suspicious lesions. Sinuses: Visualized sinuses and mastoids are clear. IMPRESSION: No acute intracranial pathology. Age related volume loss and mild white matter small vessel chronic ischemic changes. Dictated by: Mike Toribio M.D. on 03/18/2025 at 14:50 Approved by: Mike Toribio M.D. on 03/18/2025 at 14:51
--- NOTE | 2025-03-18 14:27 | DI.CT.S_ITS ---
PROCEDURE: CT CERVICAL SPINE WO CON INDICATIONS: trauma TECHNIQUE: Noncontrast 3 mm thick sections acquired from the skull base to the T4 level. Sagittal and coronal reformats were then constructed. For radiation dose reduction, the following was used: automated exposure control, adjustment of mA and/or kV according to patient size. COMPARISON: None. FINDINGS: Image quality: Excellent. Bones: No fractures or dislocations. Straightening of normal cervical lordosis is seen. 3 mm anterolisthesis of C4 on C5 and 3 mm retrolisthesis of C5 on C6 is seen. Loss of disc height, degenerative endplate changes and bilateral facet hypertrophic changes are noted throughout cervical spine more notably at C5-6 and C6-7 levels. Visualized superior ribs are intact. Soft tissues: Prevertebral soft tissues are normal in thickness. No paravertebral hematomas. No apical pneumothoraces. IMPRESSION: 1. No displaced fracture or traumatic subluxation. 2. Multilevel spondylitic changes throughout cervical spine as above. Dictated by: Mike Toribio M.D. on 03/18/2025 at 14:51 Approved by: Mike oTribio M.D. on 03/18/2025 at 14:52
--- NOTE | 2025-03-18 14:27 | DI.CT.S_ITS ---
PROCEDURE: CT CHEST ABD PEL WO CON INDICATIONS: trauma TECHNIQUE: After the administration of oral contrast, 5 mm thick sections acquired from the lung apices to the symphysis pubis. 5 mm thick coronal and sagittal reformats acquired, with additional 7 mm coronal MIP reformats through the lungs. For radiation dose reduction, the following was used: automated exposure control, adjustment of mA and/or kV according to patient size. COMPARISON: No prior CT chest for comparison. Comparison can be made to prior CT abdomen/pelvis 03/12/2023 FINDINGS: Image quality: Diagnostic. CHEST: Bilateral apical pleural thickening/scarring. Mild calcifications of the coronary arteries aortic arch and descending aorta. Heart size within normal limits. No pneumothorax, no pleural effusion, no pericardial effusion, no focal consolidation. No CT evidence of displaced rib fracture. Degenerative changes lower cervical, thoracic spine without CT evidence of fracture or subluxation. The bones appear mildly dense in attenuation for patient's age may represent normal variant versus metabolic bone disease, renal osteodystrophy, or other process. Lower Neck: No enlarged lymph nodes. Thyroid: No thyroid nodules which require sonographic follow up, per consensus guidelines. Axillae: No enlarged lymph nodes. Thoracic Vessels: The aorta and pulmonary arteries demonstrate normal size. Mediastinum and Windy: No enlarged lymph nodes. Esophagus: No wall thickening. No hiatal hernia. ABDOMEN: No CT evidence of abdominal pelvic organ injury. No abnormal free fluid and no free gas. Moderate amount of stool throughout the colon in a pattern of constipation. Moderate calcifications of the aorta and iliac vessels. Degenerative changes of the lumbar spine most notably at L3-4, L4-5 and L5-S1. Postoperative changes with right sided pedicle screws and right posterior fixation savage L5-S1. No CT evidence of lumbar spine fracture or subluxation. No pelvic/hip fracture. Nonspecific wall thickening distal rectum/anus, proctitis, hemorrhoids or other anal rectal lesion could be considered. Liver: Liver is normal in size contour and attenuation. Gallbladder: Cholecystectomy Biliary ducts: No biliary dilation. Pancreas: No ductal dilation. Spleen: Size is within normal limits. Adrenal Glands: No adrenal nodules. Kidneys and Ureters: No hydronephrosis. No solid mass. No complex renal cystic lesion which requires follow up. Stomach and Bowel: Normal caliber, without significant wall thickening. Vessels: Aorta and inferior vena cava are normal in size. PELVIS: Pelvic Organs: Unremarkable. Bladder: Unremarkable. Pelvic Nodes: No enlarged lymph nodes. Miscellaneous: No inguinal hernias are seen. IMPRESSION: No CT evidence of acute injury in the chest abdomen pelvis. Chronic findings as above Dictated by: Trenton Wolf M.D. on 03/18/2025 at 15:23 Approved by: Trenton Wolf M.D. on 03/18/2025 at 15:45
--- NOTE | 2025-03-18 14:42 | EKG_ITS ---
[facility] [address] [address] Test Date: 2025-03-18 Pat Name: Vero Ramirez Department: [facility] Room: Gender: Female Director Of Accounting: GÉNESIS : 1950 Requested By: Order Number: [id number] Reading MD: Kulwinder Jefferson MD Measurements Intervals [place] Rate: 76 P: 67 LA: 186 QRS: -36 QRSD: 146 T: 96 QT: 426 QTc: 479 Interpretive Statements Normal sinus rhythm Left axis deviation Left bundle branch block NO SIGNIFICANT CHANGE FROM PRIOR TRACING Electronically Signed On 03-18-2025 16:35:38 PDT by Kulwinder Jefferson MD
[2025-03-18 15:02] LABS: Add Manual Diff / Slide Review NO; Hematocrit 39.0 % (36-46); Hemoglobin 13.6 g/dL (12.0-16.0); Lymphocytes Absolute Auto 1500 /uL (1100-4500); Mean Corpuscular HGB Conc 34.8 % (30-36); Mean Corpuscular Hemoglobin 31.4 PG (26-34); Mean Corpuscular Volume 90.3 fL (80-100); Platelet Count 183 X10^3/uL (150-400)
[2025-03-18 15:14] LABS: INR 1.1 (0.9-1.3); Prothrombin Time 12.1 SECONDS (9.4-12.5)
[2025-03-18 15:17] LABS: Acetaminophen < 10 ug/mL (10-30); Alanine Aminotransferase 24 IU/L (<35); Albumin 4.8 g/dL (3.5-5.0); Albumin Globulin Ratio 1.7 (1.0-2.8); Alkaline Phosphatase 65 U/L (38-126); Blood Urea Nitrogen 16 mg/dL (7-17); Calcium 9.7 mg/dL (8.4-10.2); Carbon Dioxide 23 mmol/L (22-32); Chloride 100 mmol/L (98-107); Estimated Glomerular Filt Rate 56 mL/min (>60); Ethanol (ETOH) < 10 mg/dL (<10); Globulin 2.9 g/dL (1.7-4.1); Glucose 106 mg/dL (70-99); Magnesium 1.5 mg/dL (1.6-2.3); Salicylate < 1.0 mg/dL (<20); Sodium 132 mmol/L (137-145); Total Protein 7.7 g/dL (6.3-8.2)
[2025-03-18 15:19] LABS: HEMOLYSIS 56 (0-50)
[2025-03-18 15:20] LABS: Potassium 4.1 mmol/L (3.4-5.1)
[2025-03-18 15:26] LABS: NT-proBNP (BNP-Adult 18+) 63 pg/mL (<125)
[2025-03-18 15:29] LABS: Troponin I < 0.012 ng/mL (0.01-0.034)
[2025-03-18 15:48] LABS: Thyroid Stimulating Hormone 2.02 uIU/mL (0.47-4.68)
[2025-03-18 16:01] LABS: UR Morphine/Opiate cutoff 300 Negative (Negative); Ur Specific Gravity Normal (Normal); Urine MDMA Negative (Negative); Urine Methamphetamines Negative (Negative); Urine Tetrahydrocannabinol Negative (Negative); Urine Tricyclic Antidepressant Negative (Negative)
[2025-03-18 16:02] LABS: Appearance Urine UA CLEAR; Bilirubin Urine UA NEGATIVE (NEGATIVE); Color Urine UA YELLOW; Glucose Urine UA NEGATIVE (Negative); Ketones Urine UA NEGATIVE (NEGATIVE); Leukocyte Esterase Urine UA NEGATIVE (NEGATIVE); Nitrite Urine UA NEGATIVE (Negative); Occult Blood Urine UA NEGATIVE (Negative); Protein Urine UA NEGATIVE (Negative); Specific Gravity Urine UA <=1.005 (1.000-1.035); Urobilinogen Urine UA 0.2 E.U./dL (0.2)
[2025-03-18 16:03] LABS: pH Urine UA 5.5 (4.5-8.0)
--- NOTE | 2025-03-18 16:46 | PC.NURSE ---
Pt up to BR with one assist. Steady gait noted.
[2025-03-18] MEDS: LIDOCAINE 1% W/EPI 10ML 4 ML INJ (17:34)
--- NOTE | 2025-03-18 18:28 | ED.HEATRA ---
HPI - Head Injury General Chief complaint: Trauma Stated complaint: Fell and hit left side of head, bleeding Time Seen by Provider: 03/18/25 14:16 Source: patient and family Mode of arrival: Family Vehicle History of Present Illness HPI Narrative: Pleasant 75-year-old woman with a history of hypertension, hypothyroidism, and anxiety comes to the ER because of a syncopal episode after which she hit her head. She said she started to feel generally unwell and lightheaded for a few seconds before she lost consciousness. Initially she said she is not sure if she lost consciousness but it is clear that she does not recall the events of what happened today clearly. Of note, the patient did have another syncopal episode only about a month ago which was her 1st syncopal episode and she was not evaluated at that time. Interestingly, the patient has a history of a heart murmur as a child which she was told his ongoing by her doctor, and she has never had an echo. Related Data Home Medications ?Medication ?Instructions ?Recorded ?Confirmed diphenhydramine HCl 25 mg tablet 25 mg PO PRN PRN ##0 09/16/17 07/01/24 (Benadryl Allergy) BIPAP inhalation 12/20/20 07/01/24 cholecalciferol (vitamin D3) 50 1,000 mcg PO DAILY 01/31/21 07/01/24 mcg (2,000 unit) capsule docusate sodium 100 mg capsule 200 mg PO DAILY 03/01/21 07/01/24 (Colace) psyllium husk 0.52 gram capsule 0.52 g PO DAILY 03/01/21 07/01/24 (Metamucil) ascorbic acid (vitamin C) 500 mg 500 mg PO DAILY 02/28/22 07/01/24 tablet conjugated estrogens 0.3 mg tablet 0.3 mg PO DAILY 02/28/22 07/01/24 (Premarin) felodipine 10 mg tablet,extended 10 mg PO DAILY 90 days 02/28/22 07/01/24 release 24 hr metoprolol succinate 25 mg 25 mg PO DAILY 90 days 02/28/22 07/01/24 tablet,extended release 24 hr montelukast 10 mg tablet 10 mg PO DAILY 90 days 02/28/22 07/01/24 simvastatin 20 mg tablet 20 mg PO DAILY 90 days 02/28/22 07/01/24 turmeric 1 cap PO DAILY 02/28/22 07/01/24 nutritional supplement-fiber oral ea PO DAILY 02/11/24 07/01/24 liquid (Kuipkf-Vvuc-Wxqp oral liquid) cyclosporine 0.05 % eye drops in a drp EYE-BOTH 09/09/24 09/09/24 dropperette levothyroxine 75 mcg tablet 75 mcg PO DAILY 09/09/24 09/09/24 (Synthroid) lisinopril 2.5 mg tablet 2.5 mg PO DAILY 09/09/24 09/09/24 polyethylene glycol 3350 17 17 g PO DAILY 09/09/24 09/09/24 gram/dose oral powder telmisartan 20 mg tablet mg PO 09/09/24 09/09/24 Previous Rx's ?Medication ?Instructions ?Recorded conjugated estrogens 0.625 mg/gram 0.625 mg vaginal DAILY #30 grams 07/01/24 vaginal cream (Premarin) nystatin 100,000 unit/gram topical 1 applic topical DAILY #60 grams 07/06/24 powder clobetasol 0.05 % topical cream 1 applic topical .2-3x/wk PRN 08/24/24 itching #60 grams mupirocin 2 % topical ointment 1 applic topical TID #15 grams 09/09/24 lamotrigine 100 mg tablet 200 mg (2 x 100 mg) PO QDAY #180 11/11/24 (Lamictal) tabs lurasidone 40 mg tablet 40 mg PO DAILY #90 tabs 11/11/24 hydroxyzine HCl 10 mg tablet See Rx Instructions .Route 02/01/25 .COMPLEX anxiety #180 tabs Allergies Allergy/AdvReac Type Severity Reaction Status Date / Time Opioids - Morphine Analogues Allergy Severe long Verified 03/18/25 14:08 lasting intense rashes hydromorphone (HYDROMORPHONE) Allergy Unknown Verified 03/18/25 14:08 hydrocodone (HYDROCODONE) AdvReac Mild itching Verified 03/18/25 14:08 oxycodone (OXYCODONE) AdvReac Mild itching Verified 03/18/25 14:08 NSAIDS (Non-Steroidal AdvReac Unknown Verified 03/18/25 14:08 Anti-Inflamma (NSAIDS (NON-STEROIDAL ANTI-INFLAMMA) ANTHISTAMINE Allergy Intermediate HIVES,ITCHI Uncoded 03/18/25 14:08 NG Patient History Medical History Nocturnal hypoxemia Anxiety disorder Snoring Obstructive sleep apnea of adult History of IBS Bipolar disorder, unspecified Stress at home Alcohol use disorder, moderate, in sustained remission Bipolar 1 disorder with moderate divya Surgical History History of bilateral knee arthroplasty History of lumbar laminectomy History of rotator cuff surgery History of vein stripping History of cholecystectomy Social History seatbelt use: always do you feel safe at home: Yes second hand exposure: Yes (asthma) alcohol intake: former substance use type: hallucinogens during the past year weight has: remained stable Type(s) of exercise: walking alcohol intake frequency: 0-2 drinks per day Exam Initial Vital Signs Initial Vital Signs: Vital Signs Temperature 98.3 F 03/18/25 14:08 Pulse Rate 86 03/18/25 14:08 Respiratory Rate 16 03/18/25 14:08 Blood Pressure 174/84 H 03/18/25 14:08 Pulse Oximetry 97 03/18/25 14:08 Oxygen Delivery Method Room Air 03/18/25 14:08 Const General: acute distress, anxious, No diaphoretic and No frail appearing Nutritional Appearance: average body habitus Limitations: mental status not altered [facility] Head: normocephalic, laceration, scalp lesion and scalp tenderness Ears: hearing grossly normal bilaterally, TM's normal bilaterally and EAC's normal Nose: external nose normal Face and sinus: no ecchymosis and no tenderness Mouth: No mouth trauma Eyes General: Yes appearance normal, both eyes and all related structures Neck Neck: supple and No tender Procedures Laceration Repair Laceration 1: Site: scalp Side (If applicable): left Size (cm): 8 Description: other (ellipse) Depth: simple, single layer Local Anesthetic: lidocaine 1% and with epi Amount of anesthesia used (mL): 10 Skin layer closed with: samuel Number of sutures: 6 Course Course Course Narrative: Patient seen examined upon arrival. She had a full trauma scan which did not show any internal injuries. Her laceration of her scalp was repaired using samuel as described in the procedure note. She tolerated this well. And hemostasis was achieved. However, the patient has syncopized twice in the past month after never syncopized in her life prior to that with a known history of a heart murmur. I discussed the case with the hospitalist who agreed to admit the patient for ongoing cardiac monitoring and echocardiography. Orders Ordered: ED Orders 03/18/25 14:27 CT cervical spine wo con Stat CT chest abd pel wo con Stat CT head/brain wo con Stat 03/18/25 14:29 EKG-12 Lead Stat 03/18/25 14:52 Acetaminophen Stat BNP [NT-proBNP (BNP-Adult 18+)] Stat Complete Blood Count AUTO DIFF Stat Comprehensive Metabolic Panel Stat D Dimer Stat ETOH [Ethanol (ETOH)] Stat Magnesium Stat Prothrombin Time INR Stat Salicylate Stat TSH [Thyroid Stimulating Hormone] Stat Troponin I Stat 03/18/25 15:49 Urinalysis Screen (Dip Only) Stat Urine Drug Screen, Rapid Stat Discontinued Medications Hydroxyzine HCl (Hydroxyzine Hcl 25 Mg Tablet) 25 mg PO NOW ONE Stop: 03/18/25 17:31 Last Admin: 03/18/25 17:34 Dose: 25 mg Documented By: BETITO Lidocaine/Epinephrine (Lidocaine 1% W/Epi 10ml) 4 ml INJ INTRA-OP ONE Stop: 03/18/25 17:20 Last Admin: 03/18/25 17:34 Dose: 4 ml Documented By: BETITO Vital Signs Vital signs: Vital Signs - 8 hr 03/18/25 14:08 03/18/25 14:15 03/18/25 14:16 Temperature 98.3 F Pulse Rate 86 87 Respiratory Rate 16 Blood Pressure 174/84 H 174/84 H Pulse Oximetry 97 94 Oxygen Delivery Method Room Air 03/18/25 14:16 03/18/25 14:38 03/18/25 14:39 Temperature Pulse Rate 87 77 Respiratory Rate Blood Pressure 167/82 H Pulse Oximetry 94 93 Oxygen Delivery Method 03/18/25 14:39 03/18/25 15:00 03/18/25 15:00 Temperature Pulse Rate 78 75 Respiratory Rate Blood Pressure 167/83 H Pulse Oximetry 95 95 Oxygen Delivery Method 03/18/25 15:30 03/18/25 15:30 03/18/25 16:00 Temperature Pulse Rate 76 73 Respiratory Rate Blood Pressure 155/82 H Pulse Oximetry 94 93 Oxygen Delivery Method Room Air 03/18/25 16:00 Temperature Pulse Rate Respiratory Rate Blood Pressure 168/76 H Pulse Oximetry Oxygen Delivery Method MDM - Head Injury Differential Diagnosis Differential diagnosis: Likely concussion without loss of consciousness, epidural hematoma, closed head injury, subarachnoid hematoma, subdural hematoma and concussion with loss of consciousness Lab Data 03/18/25 14:52 03/18/25 14:52 Labs: Lab Results 03/18/25 03/18/25 03/18/25 Range/Units 14:52 15:49 15:49 WBC 6.2 (4.5-11.0) X10^3/uL RBC 4.32 (4.0-5.2) X10^6/uL Hgb 13.6 (12.0-16.0) g/dL Hct 39.0 (36-46) % MCV 90.3 (80-100) fL MCH 31.4 (26-34) PG MCHC 34.8 (30-36) % RDW 13.3 (11.6-14.8) % Plt Count 183 (150-400) X10^3/uL Neut % (Auto) 66.2 (50-75) % Lymph % (Auto) 24.3 L (25-40) % [place] % (Auto) 9.1 (3-14) % Eos % (Auto) 0.1 L (2-4) % Baso % (Auto) 0.3 (0-2) % Neut # (Auto) 4100 (5519-4371) /uL Lymph # (Auto) 1500 (2017-5642) /uL [place] # (Auto) 600 (0-900) /uL Eos # (Auto) 0 (0-450) /uL Baso # (Auto) 0 (0-100) /uL PT 12.1 (9.4-12.5) SECONDS INR 1.1 (0.9-1.3) D-Dimer 722 H (<500) ng/ml Sodium 132 L (137-145) mmol/L Potassium 4.1 (3.4-5.1) mmol/L Chloride 100 (98-107) mmol/L Carbon Dioxide 23 (22-32) mmol/L BUN 16 (7-17) mg/dL Creatinine 1.05 H (0.52-1.04) mg/dL Estimated GFR 56 L (>60) mL/min BUN/Creatinine Ratio 15.2 (6-22) Glucose 106 H (70-99) mg/dL Calcium 9.7 (8.4-10.2) mg/dL Magnesium 1.5 L (1.6-2.3) mg/dL Total Bilirubin 0.6 (0.2-1.3) mg/dL AST 44 H (14-36) IU/L ALT 24 (<35) IU/L Alkaline Phosphatase 65 (38-126) U/L Troponin I < 0.012 (0.01-0.034) ng/mL NT-Pro-B Natriuret Pep 63 (<125) pg/mL Total Protein 7.7 (6.3-8.2) g/dL Albumin 4.8 (3.5-5.0) g/dL Globulin 2.9 (1.7-4.1) g/dL Albumin/Globulin Ratio 1.7 (1.0-2.8) TSH 2.02 (0.47-4.68) uIU/mL Urine Color Yellow Urine Appearance Clear Urine pH 5.5 Normal (4.5-8.0) Ur Specific [place] <=1.005 (1.000-1.035) Urine Protein Negative (Negative) Urine Glucose (UA) Negative (Negative) g/dL Urine Ketones Negative (NEGATIVE) Urine Occult Blood Negative (Negative) Urine Nitrate Negative (Negative) Urine Bilirubin Negative (NEGATIVE) Urine Urobilinogen 0.2 (0.2) E.U./dL Ur Leukocyte Esterase Negative (NEGATIVE) Salicylates < 1.0 (<20) mg/dL U Opiates 300ng/mL cut Negative (Negative) Ur Oxycodone Screen Negative (Negative) Urine Methadone Screen Negative (Negative) Acetaminophen < 10 (10-30) ug/mL Ur Barbiturates Screen Negative (Negative) U Tricyclic Antidepress Negative (Negative) Ur Phencyclidine Scrn Negative (Negative) Ur Amphetamines Screen Negative (Negative) U Methamphetamines Scrn Negative (Negative) Ur MDMA Scrn (Ecstasy) Negative (Negative) U Benzodiazepines Scrn Negative (Negative) Urine Cocaine Screen Negative (Negative) U Marijuana (THC) Screen Negative (Negative) Urine Specific [place] Normal (Normal) Ethyl Alcohol < 10 (<10) mg/dL Ur Creatinine Normal (Normal) Discharge Plan Departure Patient Disposition: Admitted as Observation Clinical Impression: Syncope Admit Date/Time: 03/18/25 18:30
[2025-03-18] MEDS: TET,DIPH,PERTUSS(ACELL),VAC/PF 0.5 ML SYRINGE IM (19:25)
--- NOTE | 2025-03-18 19:38 | DI.ECHO.S_ITS ---
[facility] : : [id number] : [place] : : [id number] : : Phone: [phone] Echocardiogram Report + + :Name: INNA MARTINEZ Study Date: 03/19/2025 Height: 62 in : :[facility] ReadingLocation: Weight: 176 lb : : Gender: Female BSA: 1.8 m2 : :: 1950 Age: 75 yrs BP: 114/59 mmHg: :Reason For Study: Syncope, Murmur : :Ordering Physician: JORDYN : :KIKO RODRÍGUEZ Performed By: Anselmo Grubbs : :Referring: KIKO ESTRADA : + + Interpretation Summary The left ventricle is normal in size and wall thickness. Left ventricular systolic function is normal. The ejection fraction is estimated to be 60-65%. The right ventricle is normal in size and function. No significant valvular pathology seen. The IVC is of normal diameter and collapses greater than 50% with a sniff. This suggests a low right atrial pressure of 3 mm Hg. Procedure: A two-dimensional transthoracic echocardiogram with color flow and Doppler was performed. The study quality was technically adequate. Comparison is made with the echocardiogram of 10/13/2023. The heart rate ranged between 84-90 bpm during the study. The patient was in normal sinus rhythm during the exam. The patient had a bundle branch block rhythm during the exam. Left Ventricle: The left ventricle is normal in size and wall thickness. There is no thrombus. Left ventricular systolic function is normal. The ejection fraction is estimated to be 60-65%. Septal motion is consistent with conduction abnormality. Diastolic parameters suggest a relaxation abnormality of the left ventricle, consistent with probable normal filling pressures. Right Ventricle: The right ventricle is normal in size and function. Atria: The left atrial size is normal. Right atrial size is normal. There is no Doppler evidence for an interatrial shunt. Mitral Valve: The mitral valve leaflets appear to open well. The mitral valve leaflets appear borderline thickened. There is mild mitral annular calcification. There is no mitral valve stenosis. There is trace mitral regurgitation. Aortic Valve: The aortic valve is trileaflet. The aortic valve opens well. There is no aortic valve stenosis. No aortic regurgitation is present. Tricuspid Valve: The tricuspid valve leaflets are thin and pliable. There is trace tricuspid regurgitation. The right ventricular systolic pressure is estimated to be at least 22 mmHg based on an estimated right atrial pressure of 3 mm Hg. Pulmonic Valve: The pulmonic valve is not well seen, but is grossly normal. There is trace pulmonic regurgitation. Great Vessels: The aortic root is normal size. The ascending aorta is normal in size. The aortic arch could not be visualized. The IVC is of normal diameter and collapses greater than 50% with a sniff. This suggests a low right atrial pressure of 3 mm Hg. Pericardium/ Pleura There is no pericardial effusion. MMode/2D Measurements & Calculations LVIDd: 4.5 cm LVOT diam: 2.2 cm LVIDs: 3.1 cm Ao root diam: 3.0 cm FS: 31.5 % asc Aorta Diam: 3.6 cm IVSd: 1.0 cm LVPWd: 0.96 cm LV erickson. diameter/BSA (cm/m^2): 2.5 LV sys. diameter/BSA (cm/m^2): 1.7 LA A2 area: 17.9 cm2 RA long axis: 4.8 cm LA A4 area: 13.3 cm2 RA area: 12.6 cm2 LA length (vol): 4.5 cm RA vol: 28.5 ml LA vol: 45.4 ml RA : 15.8 ml/m2 LA vol index: 25.1 ml/m2 IVC diam: 1.2 cm RVD1 (basal): 2.6 cm RVD2 (mid): 2.0 cm TAPSE: 1.8 cm Doppler Measurements & Calculations Ao V2 max: 128.3 cm/sec LVOT Max Tom: 117.5 cm/sec Ao V2 mean: 99.1 cm/sec LV V1 max P.5 mmHg Ao max P.6 mmHg LV V1 VTI: 23.2 cm Ao mean P.2 mmHg JOSE(I,D): 3.6 cm2 Ao V2 VTI: 24.3 cm JOSE(V,D): 3.5 cm2 sev ratio: 0.95 JOSE indexed to BSA (cm^2/m^2): 2.0 MV E max tom: 58.3 cm/sec TR max tom: 219.0 cm/sec MV A max tom: 115.3 cm/sec TR max P.2 mmHg MV E/A: 0.51 PA V2 max: 102.4 cm/sec Med Peak E' Tom: 6.6 cm/sec PA V2 mean: 72.0 cm/sec E/E' med: 8.8 PA mean P.3 mmHg Lat Peak E' Tom: 5.8 cm/sec PA pr(Accel): 50.7 mmHg E/E' lat: 10.0 E/e' average: 9.4 MV dec time: 0.13 sec SV(OT): 88.1 ml Reading Physician:12:14 PM
--- NOTE | 2025-03-18 19:43 | PM.HP.1 ---
History of Present Illness History of Present Illness Date Patient Seen: 03/18/25 Time Patient Seen: 21:10 Chief complaint: Fell and hit left side of head, bleeding Narrative: 75 y/o with PMH of REESE, bipolar 1 disorder, CKD 3b,IBS, acohol use - in remission, came to the ED after she fainted, fell and hit left side of head. Came with large laceration that was stapled and stopped bleeding. This is a second episode of fainting, 1st happened a month ago and then she did not sustained injuries so she didn't bring that up. ED workup unremarkable. Placed in observation with telemetry monitoring [facility] Medical History (Updated 03/18/25 @ 22:29 by [place] MD) HTN (hypertension) Nocturnal hypoxemia Anxiety disorder Snoring Obstructive sleep apnea of adult History of IBS Bipolar disorder, unspecified Stress at home Alcohol use disorder, moderate, in sustained remission Bipolar 1 disorder with moderate divya Surgical History History of bilateral knee arthroplasty History of lumbar laminectomy History of rotator cuff surgery History of vein stripping History of cholecystectomy Social History seatbelt use: always do you feel safe at home: Yes second hand exposure: Yes (asthma) alcohol intake: former substance use type: hallucinogens during the past year weight has: remained stable Type(s) of exercise: walking Meds Home Medications and Allergies Home Medications ?Medication ?Instructions ?Recorded ?Confirmed ?Type diphenhydramine HCl 25 mg tablet 25 mg PO PRN PRN ##0 09/16/17 07/01/24 History (Benadryl Allergy) BIPAP inhalation 12/20/20 07/01/24 History cholecalciferol (vitamin D3) 50 1,000 mcg PO DAILY 01/31/21 07/01/24 History mcg (2,000 unit) capsule docusate sodium 100 mg capsule 200 mg PO DAILY 03/01/21 07/01/24 History (Colace) psyllium husk 0.52 gram capsule 0.52 g PO DAILY 03/01/21 07/01/24 History (Metamucil) ascorbic acid (vitamin C) 500 mg 500 mg PO DAILY 02/28/22 07/01/24 History tablet conjugated estrogens 0.3 mg tablet 0.3 mg PO DAILY 02/28/22 07/01/24 History (Premarin) felodipine 10 mg tablet,extended 10 mg PO DAILY 90 days 02/28/22 07/01/24 History release 24 hr metoprolol succinate 25 mg 25 mg PO DAILY 90 days 02/28/22 07/01/24 History tablet,extended release 24 hr montelukast 10 mg tablet 10 mg PO DAILY 90 days 02/28/22 07/01/24 History simvastatin 20 mg tablet 20 mg PO DAILY 90 days 02/28/22 07/01/24 History turmeric 1 cap PO DAILY 02/28/22 07/01/24 History nutritional supplement-fiber oral ea PO DAILY 02/11/24 07/01/24 History liquid (Dlqvqx-Qody-Vgwb oral liquid) conjugated estrogens 0.625 mg/gram 0.625 mg vaginal DAILY #30 grams 07/01/24 07/01/24 Rx vaginal cream (Premarin) nystatin 100,000 unit/gram topical 1 applic topical DAILY #60 grams 07/06/24 Rx powder clobetasol 0.05 % topical cream 1 applic topical .2-3x/wk PRN 08/24/24 08/24/24 Rx itching #60 grams cyclosporine 0.05 % eye drops in a drp EYE-BOTH 09/09/24 09/09/24 History dropperette levothyroxine 75 mcg tablet 75 mcg PO DAILY 09/09/24 09/09/24 History (Synthroid) lisinopril 2.5 mg tablet 2.5 mg PO DAILY 09/09/24 09/09/24 History mupirocin 2 % topical ointment 1 applic topical TID #15 grams 09/09/24 09/09/24 Rx polyethylene glycol 3350 17 17 g PO DAILY 09/09/24 09/09/24 History gram/dose oral powder telmisartan 20 mg tablet mg PO 09/09/24 09/09/24 History lamotrigine 100 mg tablet 200 mg (2 x 100 mg) PO QDAY #180 11/11/24 11/11/24 Rx (Lamictal) tabs lurasidone 40 mg tablet 40 mg PO DAILY #90 tabs 11/11/24 11/11/24 Rx hydroxyzine HCl 10 mg tablet See Rx Instructions .Route 02/01/25 02/01/25 Rx .COMPLEX anxiety #180 tabs Allergies Allergy/AdvReac Type Severity Reaction Status Date / Time Opioids - Morphine Analogues Allergy Severe long Verified 03/18/25 14:08 lasting intense rashes hydromorphone (HYDROMORPHONE) Allergy Unknown Verified 03/18/25 14:08 hydrocodone (HYDROCODONE) AdvReac Mild itching Verified 03/18/25 14:08 oxycodone (OXYCODONE) AdvReac Mild itching Verified 03/18/25 14:08 NSAIDS (Non-Steroidal AdvReac Unknown Verified 03/18/25 14:08 Anti-Inflamma (NSAIDS (NON-STEROIDAL ANTI-INFLAMMA) ANTHISTAMINE Allergy Intermediate HIVES,ITCHI Uncoded 03/18/25 14:08 NG Review of Systems Review of Systems Narrative: General - w/o fever or chills UG - w/o dysuria GI - w/o abdominal pain CVS - w/o chest pain, w/o palpitations RS - w/o SOB Neuro - fainted after she experienced dizziness Exam Vital Signs (past 8 hours): - 03/18/25 14:08 03/18/25 14:15 03/18/25 14:16 Temperature 98.3 F Pulse Rate 86 87 Respiratory Rate 16 Blood Pressure 174/84 H 174/84 H Pulse Oximetry 97 94 Oxygen Delivery Method Room Air 03/18/25 14:16 03/18/25 14:38 03/18/25 14:39 Temperature Pulse Rate 87 77 Respiratory Rate Blood Pressure 167/82 H Pulse Oximetry 94 93 Oxygen Delivery Method 03/18/25 14:39 03/18/25 15:00 03/18/25 15:00 Temperature Pulse Rate 78 75 Respiratory Rate Blood Pressure 167/83 H Pulse Oximetry 95 95 Oxygen Delivery Method 03/18/25 15:30 03/18/25 15:30 03/18/25 16:00 Temperature Pulse Rate 76 73 Respiratory Rate Blood Pressure 155/82 H Pulse Oximetry 94 93 Oxygen Delivery Method Room Air 03/18/25 16:00 03/18/25 16:30 03/18/25 16:30 Temperature Pulse Rate 73 Respiratory Rate Blood Pressure 168/76 H 159/77 H Pulse Oximetry 94 Oxygen Delivery Method 03/18/25 17:00 03/18/25 17:00 03/18/25 17:30 Temperature Pulse Rate 72 88 Respiratory Rate Blood Pressure 157/72 H Pulse Oximetry 96 95 Oxygen Delivery Method 03/18/25 17:30 03/18/25 18:00 03/18/25 18:00 Temperature Pulse Rate 84 Respiratory Rate Blood Pressure 167/86 H 166/72 H Pulse Oximetry 93 Oxygen Delivery Method 03/18/25 18:32 03/18/25 18:33 03/18/25 18:33 Temperature Pulse Rate 72 73 Respiratory Rate Blood Pressure 166/77 H Pulse Oximetry 94 94 Oxygen Delivery Method Oxygen Delivery Method Room Air Narrative Exam Narrative: General - in no distress HEENT - atraumatic, equal pupils, eomi, supple neck CVS - RRR RS - normal respiratory effort GI- not distended Neuro - w/o deficits, lucid Objective ECG Impression: NSR 76, LBBB Imaging CT scan - head: Radiologist's impression: No acute intracranial pathology. Age related volume loss and mild white matter small vessel chronic ischemic changes. CT CHEST / ABDOMEN / PELVIS: Radiologist's impression: No CT evidence of acute injury in the chest abdomen pelvis. CT CERVICAL SPINE: Radiologist's impression: 1. No displaced fracture or traumatic subluxation. 2. Multilevel spondylitic changes throughout cervical spine as above. Labs 03/18/25 14:52 03/18/25 14:52 Labs: Laboratory Results - last 24 hr 03/18/25 03/18/25 03/18/25 14:52 15:49 15:49 WBC 6.2 RBC 4.32 Hgb 13.6 Hct 39.0 MCV 90.3 MCH 31.4 MCHC 34.8 RDW 13.3 Plt Count 183 Neut % (Auto) 66.2 Lymph % (Auto) 24.3 L [place] % (Auto) 9.1 Eos % (Auto) 0.1 L Baso % (Auto) 0.3 Neut # (Auto) 4100 Lymph # (Auto) 1500 [place] # (Auto) 600 Eos # (Auto) 0 Baso # (Auto) 0 PT 12.1 INR 1.1 D-Dimer 722 H Sodium 132 L Potassium 4.1 Chloride 100 Carbon Dioxide 23 BUN 16 Creatinine 1.05 H Estimated GFR 56 L BUN/Creatinine Ratio 15.2 Glucose 106 H Calcium 9.7 Magnesium 1.5 L Total Bilirubin 0.6 AST 44 H ALT 24 Alkaline Phosphatase 65 Troponin I < 0.012 NT-Pro-B Natriuret Pep 63 Total Protein 7.7 Albumin 4.8 Globulin 2.9 Albumin/Globulin Ratio 1.7 TSH 2.02 Urine Color Yellow Urine Appearance Clear Urine pH 5.5 Normal Ur Specific [place] <=1.005 Urine Protein Negative Urine Glucose (UA) Negative Urine Ketones Negative Urine Occult Blood Negative Urine Nitrate Negative Urine Bilirubin Negative Urine Urobilinogen 0.2 Ur Leukocyte Esterase Negative Salicylates < 1.0 U Opiates 300ng/mL cut Negative Ur Oxycodone Screen Negative Urine Methadone Screen Negative Acetaminophen < 10 Ur Barbiturates Screen Negative U Tricyclic Antidepress Negative Ur Phencyclidine Scrn Negative Ur Amphetamines Screen Negative U Methamphetamines Scrn Negative Ur MDMA Scrn (Ecstasy) Negative U Benzodiazepines Scrn Negative Urine Cocaine Screen Negative U Marijuana (THC) Screen Negative Urine Specific [place] Normal Ethyl Alcohol < 10 Ur Creatinine Normal Assessment & Plan Assessment and plan (1) Syncope: Status: Acute (2) HTN (hypertension): Status: Acute (3) Bipolar 1 disorder with moderate divya: Status: Acute (4) Obstructive sleep apnea of adult: Status: Chronic (5) Kidney disease, chronic, stage III (GFR 30-59 ml/min): Qualifiers: Chronic kidney disease stage 3 subtype: stage 3a (GFR 45-59) Qualified Code(s): N18.31 - Chronic kidney disease, stage 3a Status: Acute Assessment & Plan narrative: Syncope - observation on telemetry - echocardiogram pending - home metoprolol on hold Hypomagnesemia - MgS x 1 IV REESE - home Bipap HTN - Norvasc 10 mg daily - Losartan 25 mg daily CKD - at baseline Hyponatremia - mild, likely chronic Bipolar 1 disorder - lurasidone, lamictal, hydroxyzine DVT prophylaxis - Lovenox Patient consented to real-time, audio-visual telemedicine visit with RN assisting during the exam. Patient located at [place], [place], provider located in [place]. Time-Based Coding :: [TOTAL MINUTES] spent with patient and on the chart (including review of chart, obtaining history, exam, reviewing outside data, placing orders, documenting exam and treatment plan, and counseling patient) on [DATE].
[2025-03-18] MEDS: ACETAMINOPHEN 325 MG TABLET 650 MG PO (22:42)
--- NOTE | 2025-03-18 22:57 | PC.NURSE ---
pt refused SCD devive, pt reports she'd rather keep her compression socks on
[2025-03-19] VITALS (17 sets, daily range): BP systolic 118–138; BP diastolic 55–80; PULSE 69–92; RESP 16–29; O2SAT 93–95
[2025-03-19] MEDS: MAGNESIUM SULFATE 2 GM/50 ML PIGGYBACK IV (03:01)
[2025-03-19 05:33] LABS: Add Manual Diff / Slide Review NO; Hematocrit 38.5 % (36-46); Hemoglobin 13.5 g/dL (12.0-16.0); Lymphocytes Absolute Auto 1600 /uL (1100-4500); Mean Corpuscular HGB Conc 35.2 % (30-36); Mean Corpuscular Hemoglobin 31.6 PG (26-34); Mean Corpuscular Volume 89.8 fL (80-100); Platelet Count 183 X10^3/uL (150-400)
[2025-03-19 05:47] LABS: Blood Urea Nitrogen 19 mg/dL (7-17); Calcium 9.7 mg/dL (8.4-10.2); Carbon Dioxide 23 mmol/L (22-32); Chloride 104 mmol/L (98-107); Estimated Glomerular Filt Rate 51 mL/min (>60); Glucose 96 mg/dL (70-99); HEMOLYSIS 25 (0-50); Potassium 4.5 mmol/L (3.4-5.1); Sodium 135 mmol/L (137-145)
--- NOTE | 2025-03-19 06:20 | PC.NURSE ---
Pt able to independently utilize the bedside commode. A&Ox4 calls appropriately.
[2025-03-19] MEDS: AMLODIPINE 5 MG TABLET 10 MG PO (08:10)
[2025-03-19] MEDS: ATORVASTATIN 20 MG TABLET 10 MG PO (08:10)
[2025-03-19] MEDS: LEVOTHYROXINE 75 MCG TABLET PO (08:10)
[2025-03-19] MEDS: ENOXAPARIN 40 MG/0.4 ML SYRINGE SUBCUT (08:12)
[2025-03-19] MEDS: LOSARTAN 25 MG TABLET PO (09:13)
[2025-03-19] MEDS: ACETAMINOPHEN 325 MG TABLET 650 MG PO (13:14)
--- NOTE | 2025-03-19 14:09 | P.DS_ITS ---
History of Present Illness History of Present Illness Date Patient Seen: 03/19/25 Chief complaint: Fell and hit left side of head, bleeding Narrative: Chief complaint: Syncope with fall History of present illness: 75 y/o who felt lightheaded and fell hitting her head on the corner of a cart in the in the kitchen she did regain cogency was asymptomatic in the emergency room and observed PMH of REESE, bipolar 1 disorder, CKD 3b,IBS, acohol use - in remission, came to the ED after she fainted, fell and hit left side of head. Came with large laceration that was stapled and stopped bleeding. This is a second episode of fainting, 1st happened a month ago and then she did not sustained injuries so she didn't bring that up. ED workup unremarkable. 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 Discharge Providers Provider Date of admission: 03/18/25 18:30 Discharge Date: 03/19/25 Primary care physician: Armaan Stanford MD Discharge provider: Satinder Bolden MD Exam Vital Signs (past 8 hours): - 03/19/25 07:00 03/19/25 08:00 03/19/25 09:00 Pulse Rate 80 69 84 Respiratory Rate 20 16 24 Blood Pressure Pulse Oximetry 03/19/25 10:00 03/19/25 11:00 03/19/25 12:00 Pulse Rate 81 86 92 H Respiratory Rate 24 20 Blood Pressure Pulse Oximetry 03/19/25 13:00 03/19/25 13:17 03/19/25 13:17 Pulse Rate 90 88 Respiratory Rate 29 H 24 Blood Pressure 118/55 L Pulse Oximetry 95 Oxygen Delivery Method Room Air Objective Labs 03/19/25 05:20 03/19/25 05:20 Labs: Laboratory Results - last 24 hr 03/18/25 03/18/25 03/18/25 14:52 15:49 15:49 WBC 6.2 RBC 4.32 Hgb 13.6 Hct 39.0 MCV 90.3 MCH 31.4 MCHC 34.8 RDW 13.3 Plt Count 183 Neut % (Auto) 66.2 Lymph % (Auto) 24.3 L [place] % (Auto) 9.1 Eos % (Auto) 0.1 L Baso % (Auto) 0.3 Neut # (Auto) 4100 Lymph # (Auto) 1500 [place] # (Auto) 600 Eos # (Auto) 0 Baso # (Auto) 0 PT 12.1 INR 1.1 D-Dimer 722 H Sodium 132 L Potassium 4.1 Chloride 100 Carbon Dioxide 23 BUN 16 Creatinine 1.05 H Estimated GFR 56 L BUN/Creatinine Ratio 15.2 Glucose 106 H Calcium 9.7 Magnesium 1.5 L Total Bilirubin 0.6 AST 44 H ALT 24 Alkaline Phosphatase 65 Troponin I < 0.012 NT-Pro-B Natriuret Pep 63 Total Protein 7.7 Albumin 4.8 Globulin 2.9 Albumin/Globulin Ratio 1.7 TSH 2.02 Urine Color Yellow Urine Appearance Clear Urine pH 5.5 Normal Ur Specific [place] <=1.005 Urine Protein Negative Urine Glucose (UA) Negative Urine Ketones Negative Urine Occult Blood Negative Urine Nitrate Negative Urine Bilirubin Negative Urine Urobilinogen 0.2 Ur Leukocyte Esterase Negative Salicylates < 1.0 U Opiates 300ng/mL cut Negative Ur Oxycodone Screen Negative Urine Methadone Screen Negative Acetaminophen < 10 Ur Barbiturates Screen Negative U Tricyclic Antidepress Negative Ur Phencyclidine Scrn Negative Ur Amphetamines Screen Negative U Methamphetamines Scrn Negative Ur MDMA Scrn (Ecstasy) Negative U Benzodiazepines Scrn Negative Urine Cocaine Screen Negative U Marijuana (THC) Screen Negative Urine Specific [place] Normal Ethyl Alcohol < 10 Ur Creatinine Normal 03/19/25 05:20 WBC 6.4 RBC 4.28 Hgb 13.5 Hct 38.5 MCV 89.8 MCH 31.6 MCHC 35.2 RDW 13.5 Plt Count 183 Neut % (Auto) 63.2 Lymph % (Auto) 24.4 L [place] % (Auto) 11.7 Eos % (Auto) 0.1 L Baso % (Auto) 0.6 Neut # (Auto) 4100 Lymph # (Auto) 1600 [place] # (Auto) 800 Eos # (Auto) 0 Baso # (Auto) 0 PT INR D-Dimer Sodium 135 L Potassium 4.5 Chloride 104 Carbon Dioxide 23 BUN 19 H Creatinine 1.13 H Estimated GFR 51 L BUN/Creatinine Ratio 16.8 Glucose 96 Calcium 9.7 Magnesium Total Bilirubin AST ALT Alkaline Phosphatase Troponin I NT-Pro-B Natriuret Pep Total Protein Albumin Globulin Albumin/Globulin Ratio TSH Urine Color Urine Appearance Urine pH Ur Specific [place] Urine Protein Urine Glucose (UA) Urine Ketones Urine Occult Blood Urine Nitrate Urine Bilirubin Urine Urobilinogen Ur Leukocyte Esterase Salicylates U Opiates 300ng/mL cut Ur Oxycodone Screen Urine Methadone Screen Acetaminophen Ur Barbiturates Screen U Tricyclic Antidepress Ur Phencyclidine Scrn Ur Amphetamines Screen U Methamphetamines Scrn Ur MDMA Scrn (Ecstasy) U Benzodiazepines Scrn Urine Cocaine Screen U Marijuana (THC) Screen Urine Specific [place] Ethyl Alcohol Ur Creatinine PFSH Medical History (Updated 03/18/25 @ 22:29 by [place] MD) HTN (hypertension) Nocturnal hypoxemia Anxiety disorder Snoring Obstructive sleep apnea of adult History of IBS Bipolar disorder, unspecified Stress at home Alcohol use disorder, moderate, in sustained remission Bipolar 1 disorder with moderate divya Surgical History History of bilateral knee arthroplasty History of lumbar laminectomy History of rotator cuff surgery History of vein stripping History of cholecystectomy Social History seatbelt use: always do you feel safe at home: Yes second hand exposure: Yes (asthma) alcohol intake: former substance use type: hallucinogens during the past year weight has: remained stable Type(s) of exercise: walking Discharge Plan Discharge Plan Patient Disposition: Home Provider Discharge Comment: Discontinue Felodipine until you see Cardiology Discharge orders & Medications Prescriptions: Continued lisinopril 2.5 mg tablet 2.5 mg PO DAILY telmisartan 20 mg tablet PO levothyroxine [Synthroid] 75 mcg tablet 75 mcg PO DAILY polyethylene glycol 3350 17 gram/dose powder 17 g PO DAILY cyclosporine 0.05 % dropperette EYE-BOTH mupirocin 2 % ointment 1 applic topical TID Qty: 15 0RF metoprolol succinate 25 mg tablet extended release 24 hr 25 mg PO DAILY 90 Days simvastatin 20 mg tablet 20 mg PO DAILY 90 Days montelukast 10 mg tablet 10 mg PO DAILY 90 Days BIPAP inhalation docusate sodium [Colace] 100 mg capsule 200 mg PO DAILY psyllium husk [Metamucil] 0.52 gram capsule 0.52 g PO DAILY ascorbic acid (vitamin C) 500 mg tablet 500 mg PO DAILY Premarin 0.3 mg tablet 0.3 mg PO DAILY turmeric 1 cap PO DAILY [id number] Liquid PO DAILY lamotrigine [Lamictal] 100 mg tablet 200 mg PO QDAY Qty: 180 3RF lurasidone 40 mg tablet 40 mg PO DAILY Qty: 90 3RF diphenhydramine HCl [Benadryl Allergy] 25 MG tablet 25 mg PO PRN PRNQty: 0 nystatin 100,000 unit/gram powder 1 applic topical DAILY Qty: 60 12RF Premarin 0.625 mg/gram cream 0.625 mg vaginal DAILY Qty: 30 12RF Rx Instructions: 1 gm PV HS 3 nights weekly clobetasol 0.05 % cream 1 applic topical .2-3x/wk PRN (Reason: itching) Qty: 60 6RF cholecalciferol (vitamin D3) 50 mcg (2,000 unit) capsule 1,000 mcg PO DAILY Discontinued felodipine 10 mg tablet extended release 24 hr 10 mg PO DAILY 90 Days hydroxyzine HCl 10 mg tablet See Rx Instructions .ROUTE .COMPLEX Qty: 180 5RF Rx Instructions: Take 10 mg four times daily as needed for anxiety, and take 20 mg at bedtime; Follow up/Referrals: Armaan Stanford MD [Primary Care Provider, Family Practice] Davina Steiner MD [Physician, Cardiology] Referral Note: Patient had 2 syncopal episodes 30 days apart Felodipine was discontinued Visit Report/Discharge Packet Stand Alone Forms: Patient Portal/API Discharge Data Primary Care Provider: Armaan Stanford Attending Provider: Satinder Bolden Admit Date/Time: 03/18/25 18:30
== END 2025-03-19 15:01 | disposition home or self-care (01) ==
LOC: ED 14:16 → AC 18:30
PROVIDERS: Internal Medicine; Admitting Provider Family Medicine; Emergency Provider Emergency Medicine; PCP Family Medicine; Referring Provider Emergency Medicine; Visit Provider Internal Medicine
DX: S01.01XA Laceration without foreign body of scalp, initial encounter (principal); R55 Syncope and collapse; W18.39XA Other fall on same level, initial encounter; E83.42 Hypomagnesemia; E87.1 Hypo-osmolality and hyponatremia; R01.1 Cardiac murmur, unspecified; I12.9 Hypertensive chronic kidney disease with stage 1 through stage 4 chronic kidney disease, or unspecified chronic kidney disease; N18.31 Chronic kidney disease, stage 3a; E03.9 Hypothyroidism, unspecified; G47.33 Obstructive sleep apnea (adult) (pediatric); F41.9 Anxiety disorder, unspecified; F31.12 Bipolar disorder, current episode manic without psychotic features, moderate; Z23 Encounter for immunization
CPT/HCPCS: 12004; 36415; 70450; 71250; 72125; 74176; 80048; 80053; 80305; 80320; 80329; 81003; 83735; 83880; 84443; 84484; 85025; 85379; 85610; 90471; 93005; 93010; 93306; 96365; 96366; 96372; 99284; G0378; 90715; A9270; G0480; J1650; J3475

== ENCOUNTER → 2025-08-31 07:33 | Outpatient (CLI) | payer MEDICARE, OTHER, SELFPAY ==
[2025-03-18 22:26] VITALS: BMI 32.3
--- NOTE | 2025-08-31 07:37 | DI.MG.S_ITS ---
MM screening mammo BI: 08/31/2025. BI-RADS: 1 CLINICAL: 75-year old female for bilateral screening mammogram. Tyrer-Cuzick lifetime risk of 2.9%. No personal or first-degree family history of breast cancer. PRIOR EXAMS 06/05/2024, 03/13/2023, 03/12/2022, 01/25/2021. MAMMOGRAPHY TECHNIQUE: 2D and 3D (tomosynthesis) digital mammographic views obtained, with additional images as needed for full coverage. Current study was also evaluated with a Computer Aided Detection (CAD) system. DENSITY B. There are scattered areas of fibroglandular density. MAMMOGRAPHY FINDINGS Bilateral: No suspicious mass, asymmetry, microcalcification, or other abnormality seen. IMPRESSION: * No evidence of malignancy. RECOMMENDATIONS Bilateral * Annual screening mammography. OVERALL ASSESSMENT CATEGORY BI-RADS-1: Negative. The [employer] recommends annual screening mammography beginning at age 40 for women with average risk of breast cancer. ELECTRONICALLY SIGNED: Marizol Yeung M.D. on 08/31/2025 at 12:28:03 PM PT Interpreting Station ID: [id number]
== END ==
LOC: MAMMO 07:36
PROVIDERS: PCP Family Medicine; Referring Provider Family Medicine; Visit Provider Family Medicine
DX: Z12.31 Encounter for screening mammogram for malignant neoplasm of breast (principal)
CPT/HCPCS: 77063; 77067